=== PATIENT | female | born 1970 | race African-American/Black ===

== ENCOUNTER 2017-06-13 08:27 | Observation (INO) | payer SELFPAY ==
[2017-06-13] VITALS (11 sets, daily range): BP systolic 168–207; BP diastolic 82–118; PULSE 78–108; RESP 16–20; TEMP 97.9–98.6; O2SAT 94–99
[~2017-06-13 08:27] MED LIST: METO25 PO; NORV5TAB PO
[2017-06-13] MEDS ORDERED: SODIUM CHLORIDE 0.9% FLUSH 10 ML FLUSH IVF PRN (08:45)
[2017-06-13] MEDS ORDERED: ASPIRIN 81 MG CHEW TAB PO ONE (09:00)
--- NOTE | 2017-06-13 09:09 | PD ---
HPI Chief Complaint: Cardiac Complaint Time Seen by Provider: 08:37 Travel History International Travel<30 days: No Contact w/Intl Traveler<30days: No Traveled to known affect area: No History of Present Illness HPI Patient is a 46-year-old female with a history of high blood pressure is not taking her medicines and some months presents emergency Department with acute on chronic chest pain. Patient states she's been having chest pains in the middle of her chest for the past 2 weeks which got severe this morning. States his company with some mild nausea and one episode of nonbilious nonbloody vomiting as well as shortness of breath. She states she had a cardiac catheterization approximately 3 years ago an outside facility. She has not followed up with primary care physician sometime. Unknown if she has diabetes or high cholesterol. Describes her pain as sharp in the middle of her chest without radiation. Cannot describe any alleviating or exacerbating factors. She states that "everyone" has heart problems and my family. PFSH Past Medical History Diminished Hearing: No Hypertension: Yes Tetanus Vaccination: Unknown Influenza Vaccination: No ?: Not LMP: 05/22/17 Tubal Ligation: Yes (1991) Past Surgical History Section: Yes (1990) Social History Alcohol Use: Yes (4 BEERS PER DAY X 16 YEARS) Tobacco Use: Yes (/2 ppd) Substance Use: No Allergies-Medications (Allergen,Severity, Reaction): Coded Allergies: Lisinopril (Verified Adverse Reaction, Severe, Swelling, 06/13/17) Reported Meds & Prescriptions Reported Meds & Active Scripts Active No Active Prescriptions or Reported Medications Review of Systems Except as stated in HPI: all other systems reviewed are Neg Physical Exam Narrative GENERAL: Well-developed well-nourished no apparent distress, morbidly obese. SKIN: Focused skin assessment warm/dry. HEAD: Atraumatic. Normocephalic. EYES: Pupils equal and round. No scleral icterus. No injection or drainage. ENT: No nasal bleeding or discharge. Mucous membranes pink and moist. NECK: Trachea midline. No JVD. CARDIOVASCULAR: Regular rate and rhythm. No murmur appreciated. RESPIRATORY: No accessory muscle use. Clear to auscultation. Breath sounds equal bilaterally. GASTROINTESTINAL: Abdomen soft, non-tender, nondistended. Hepatic and splenic margins not palpable. MUSCULOSKELETAL: No obvious deformities. No clubbing. No cyanosis. No edema. NEUROLOGICAL: Awake and alert. No obvious cranial nerve deficits. Motor grossly within normal limits. Normal speech. PSYCHIATRIC: Appropriate mood and affect; insight and judgment normal. Data Data Last Documented VS Vital Signs Date Time Temp Pulse Resp B/P Pulse Ox O2 Delivery O2 Flow Rate FiO2 06/13/17 12:00 87 16 179/89 98 Nasal Cannula 2 06/13/17 08:30 98.6 Orders Electrocardiogram (06/13/17 08:38) Ckmb (Isoenzyme) Profile (06/13/17 08:38) Complete Blood Count With Diff (06/13/17 08:38) Comprehensive Metabolic Panel (06/13/17 08:38) Magnesium (Mg) (06/13/17 08:38) Prothrombin Time / Inr (Pt) (06/13/17 08:38) Act Partial Throm Time (Ptt) (06/13/17 08:38) Troponin I (06/13/17 08:38) Lipase (06/13/17 08:38) Chest, Single Ap (06/13/17 08:38) Ecg Monitoring (06/13/17 08:38) Bilateral Bp Monitoring (06/13/17 08:38) Iv Access Insert/Monitor (06/13/17 08:38) Oximetry (06/13/17 08:38) Oxygen Administration (06/13/17 08:38) Sodium Chloride 0.9% Flush (Ns Flush) (06/13/17 08:45) Aspirin Chew (Aspirin Chew) (06/13/17 09:00) Nitroglycerin Sl (Nitrostat Sl) (06/13/17 09:00) CKMB (06/13/17 08:53) CKMB% (06/13/17 08:53) Potassium Chloride (Kcl) (06/13/17 10:00) Nitroglycerin 2% Oint (Nitroglycerin 2% (06/13/17 10:45) Admit Order (Ed Use Only) (06/13/17 ) Labs Laboratory Tests Test 06/13/17 08:53 White Blood Count 6.2 TH/MM3 Red Blood Count 4.76 MIL/MM3 Hemoglobin 11.3 GM/DL Hematocrit 35.9 % Mean Corpuscular Volume 75.4 FL Mean Corpuscular Hemoglobin 23.7 PG Mean Corpuscular Hemoglobin 31.5 % Concent Red Cell Distribution Width 18.8 % Platelet Count 303 TH/MM3 Mean Platelet Volume 8.2 FL Neutrophils (%) (Auto) 68.8 % Lymphocytes (%) (Auto) 23.4 % Monocytes (%) (Auto) 6.1 % Eosinophils (%) (Auto) 1.4 % Basophils (%) (Auto) 0.3 % Neutrophils # (Auto) 4.3 TH/MM3 Lymphocytes # (Auto) 1.4 TH/MM3 Monocytes # (Auto) 0.4 TH/MM3 Eosinophils # (Auto) 0.1 TH/MM3 Basophils # (Auto) 0.0 TH/MM3 CBC Comment DIFF FINAL Differential Comment Prothrombin Time 10.4 SEC Prothromb Time International 0.9 RATIO Ratio Activated Partial 25.9 SEC Thromboplast Time Sodium Level 132 MEQ/L Potassium Level 2.7 MEQ/L Chloride Level 95 MEQ/L Carbon Dioxide Level 28.8 MEQ/L Anion Gap 8 MEQ/L Blood Urea Nitrogen 10 MG/DL Creatinine 0.87 MG/DL Estimat Glomerular Filtration 85 ML/MIN Rate Random Glucose 117 MG/DL Calcium Level 8.9 MG/DL Magnesium Level 2.1 MG/DL Total Bilirubin 0.3 MG/DL Aspartate Amino Transf 15 U/L (AST/SGOT) Alanine Aminotransferase 19 U/L (ALT/SGPT) Alkaline Phosphatase 103 U/L Total Creatine Kinase 137 U/L Creatine Kinase MB 1.7 NG/ML Troponin I LESS THAN 0.02 NG/ML Total Protein 8.7 GM/DL Albumin 3.8 GM/DL Lipase 83 U/L MDM Medical Decision Making Medical Screen Exam Complete: Yes Emergency Medical Condition: Yes Interpretation(s) EKG shows normal sinus rhythm normal axis normal R-wave progression. Intervals within normal limits. No concerning ST segment changes. This normal EKG. Differential Diagnosis ACS, AMI, pneumonia, PE is excluded by wells and PERC criteria, hypertensive. Narrative Course Patient roomed in emergency department, his history of high blood pressure and family history of heart disease as well as obesity. Blood pressure remains elevated despite nitroglycerin and mildly hypokalemic, for this reason she is not a candidate for chest pain center will be placed out to have this. Patient was discussed with hospitalist for admission is agreeable. Initial workup including EKG and troponin is negative. Chest x-ray negative. Diagnosis Primary Impression: Chest pain Additional Impression: Hypokalemia Admitting Information Admitting Physician Requests: Observation Scripts No Active Prescriptions or Reported Meds Condition: Stable Roberth Calix MD Jun 13, 2017 09:09
[2017-06-13] MEDS: NITROGLYCERIN 0.4 MG SL 25 TABS/BTL SL SCH ×3 (09:13→09:38)
--- NOTE | 2017-06-13 09:13 | RADRPT ---
EXAM DATE/TIME: 06/13/2017 08:56 [facility] COMPARISON: No previous studies available for comparison. INDICATIONS : Chest pain MEDICAL HISTORY : None. SURGICAL HISTORY : catherization a couple years ago. ENCOUNTER: Initial ACUITY: 1 week PAIN SCORE: 5/10 LOCATION: Bilateral chest FINDINGS: A single view of the chest demonstrates the lungs to be symmetrically aerated without evidence of mas s, infiltrate or effusion. Mild enlargement of the cardiac silhouette. Osseous structures are intact . CONCLUSION: 1. Mild cardiomegaly. 2. Otherwise, no acute cardiopulmonary disease. Rell Gutierrez MD on June 13, 2017 at 9:10 Board Certified Radiologist. This report was verified electronically.
[2017-06-13 09:24] LABS: AUTOMATED NEUTROPHIL # 4.3 TH/MM3 (1.8-7.7); BASOPHIL % 0.3 % (0.0-2.0); EOSINOPHIL # 0.1 TH/MM3 (0-0.4); EOSINOPHIL % 1.4 % (0.0-4.0); HEMATOCRIT 35.9 % (35.0-46.0); HEMO FLAGS DIFF FINAL; LYMPH % 23.4 % (9.0-44.0); LYMPHOCYTE # 1.4 TH/MM3 (1.0-4.8); MEAN CELL VOLUME 75.4 FL (80.0-100.0); MEAN CORPUSCULAR HEMOGLOBIN 23.7 PG (27.0-34.0); MEAN CORPUSCULAR HGB CONC 31.5 % (32.0-36.0); MONO % 6.1 % (0.0-8.0); NEUT % 68.8 % (16.0-70.0); PLATELET COUNT 303 TH/MM3 (150-450); RED BLOOD COUNT 4.76 MIL/MM3 (4.00-5.30); RED CELL DISTRIBUTION WIDTH 18.8 % (11.6-17.2); WHITE BLOOD COUNT 6.2 TH/MM3 (4.0-11.0)
[2017-06-13 09:36] LABS: APTT (PATIENT) 25.9 SEC (24.3-30.1); INTERNATIONAL NORMALIZED RATIO 0.9 RATIO; PROTHROMBIN TIME - PATIENT 10.4 SEC (9.8-11.6)
[2017-06-13 09:46] LABS: ALT (GPT) 19 U/L (10-53); ANION GAP 8 MEQ/L (5-15); AST (GOT) 15 U/L (15-37); BICARBONATE 28.8 MEQ/L (21.0-32.0); BLOOD UREA NITROGEN 10 MG/DL (7-18); CHLORIDE 95 MEQ/L (98-107); GLOMERULAR FILTRATION RATE 85 ML/MIN (>89); MAGNESIUM 2.1 MG/DL (1.5-2.5); SODIUM (NA) 132 MEQ/L (136-145)
[2017-06-13 09:49] LABS: ALKALINE PHOSPHATASE 103 U/L (45-117); CREATINE KINASE 137 U/L (26-192); POTASSIUM 2.7 MEQ/L (3.5-5.1); TOTAL BILIRUBIN ADULT 0.3 MG/DL (0.2-1.0)
[2017-06-13] MEDS ORDERED: POTASSIUM CHLORIDE 20 MEQ CONTROLLED RELEASE TAB PO ONE (10:00)
[2017-06-13 10:03] LABS: CKMB 1.7 NG/ML (0.5-3.6)
[2017-06-13] MEDS ORDERED: NITROGLYCERIN 2% OINT 1 GM PACKET TOPICAL ONE (10:45)
--- NOTE | 2017-06-13 12:39 | EKG ---
Date Performed: 06/13/2017 Time Performed: 08:43:59 PTAGE: 46 years EKG: Sinus rhythm NORMAL ECG NO PREVIOUS TRACING DOCTOR: Rolando Garrido Interpretating Date/Time 06/13/2017 12:37:07
[2017-06-13] MEDS ORDERED: LACTULOSE SYRUP 20 GM/30 ML CUP PO PRN (12:45)
[2017-06-13] MEDS ORDERED: SODIUM CHLORIDE 0.9% FLUSH 10 ML FLUSH IV FLUSH PRN (12:45)
[2017-06-13] MEDS ORDERED: MAGNESIUM HYDROXIDE SUSP 30 ML CUP PO PRN (12:45)
[2017-06-13] MEDS ORDERED: ACETAMINOPHEN 325 MG TAB PO PRN (12:45)
[2017-06-13] MEDS ORDERED: SENNOSIDES 8.6 MG TAB PO PRN (12:45)
[2017-06-13] MEDS ORDERED: NALOXONE HCL 0.4 MG/ML AMP IV PRN (12:45)
[2017-06-13] MEDS ORDERED: ONDANSETRON HCL 4 MG/2 ML VIAL IVP PRN (12:45)
[2017-06-13] MEDS ORDERED: BISACODYL 10 MG SUPP RECTAL PRN (12:45)
[2017-06-13] MEDS: POTASSIUM CHLORIDE 20 MEQ CONTROLLED RELEASE TAB PO SCH ×2 (13:08→20:43)
--- NOTE | 2017-06-13 13:46 | HHI.HP ---
[facility] No Primary Care Physician Admission Diagnosis Chest pain Diagnoses: Chief Complaint: chest pain Travel History International Travel<30 Days: No Contact w/Intl Traveler <30 Da: No Traveled to Known Affected Are: No History of Present Illness Written by Lynda Duffy, acting as scribe for Dr. Gooden on 06/13/17 at 14:48. This note was transcribed by scribJUDY De Jesus. I, Dr. Blanco Gooden personally performed the history, physical exam, and medical decision making; and confirmed the accuracy of the information in the transcribed note. Authenticated by Dr. Blanco Gooden on 06/13/17 at 23:51. 46-year-old female with history of obesity, tobacco use, alcohol use, and hypertension presents with a 1.5 week history of intermittent chest pains. She locates the chest pain to the center of her chest, described as stabbing pains, associated with left arm numbness, diaphoresis. Today her chest pain was much worse, described as severe, and associated with nausea, vomiting, and shortness of breath. The pain lasts 15-20minutes at a time. She reports mostly chest pains are experienced with exertion, denies any chest pain at rest. She has correlated chest pains with her headaches. She states almost every night she's had a migraine with photophobia, relieved by rest/sleep after 3-4 hours. The patient states over a month ago her legs became significantly swollen however this has improved. She was previously on metoprolol for her hypertension however recently only taking full strength aspirin. She cannot tolerate lisinopril due to allergic reaction. The patient believes she's had a cardiac catheterization 2-3years ago at [facility] that was reportedly clean. She denies any prior nuclear stress test. Currently the patient is chest pain free after receiving nitro/aspirin in the ED. She does not see a primary care physician but states she will plan on getting insurance through her employer. Review of Systems Except as stated in HPI: all other systems reviewed are Neg Past Family Social History Past Medical History Hypertension Past Surgical History Tubal ligation 1991 1990 Reported Medications Denies taking medications on a regular basis. Allergies: Coded Allergies: Lisinopril (Verified Adverse Reaction, Severe, Swelling, 06/13/17) Active Ordered Medications Current Medications Medications (Trade) Dose Ordered Sig/Canelo Route Start Time Stop Time Status Last Admin (NS Flush) 2 ml UNSCH PRN IV FLUSH 06/13/17 12:45 (NS Flush) 2 ml BID IV FLUSH 06/13/17 21:00 (Tylenol) 650 mg Q4H PRN PO 06/13/17 12:45 (Zofran Inj) 4 mg Q6H PRN IVP 06/13/17 12:45 (Narcan Inj) 0.4 mg UNSCH PRN IV 06/13/17 12:45 (Anita-Colace) 1 tab BID PO 06/13/17 21:00 (Milk Of Magnesia Liq) 30 ml Q12H PRN PO 06/13/17 12:45 (Senokot) 17.2 mg Q12H PRN PO 06/13/17 12:45 (Dulcolax Supp) 10 mg DAILY PRN RECTAL 06/13/17 12:45 (Lactulose Liq) 30 ml DAILY PRN PO 06/13/17 12:45 (KCl) 20 meq Q8H PO 06/13/17 13:00 06/16/17 12:59 06/13/17 13:08 Family History Father at a young age, probably in his 40s, with heart disease Mother with hypertension Brother with stroke in his late 40s Cousin in her 40s after triple bypass Social History Tobacco use, smokes 1/2 PPD Alcohol use, 2-4beers almost every day Denies any illicit drug use Physical Exam Vital Signs Vital Signs Date Time Temp Pulse Resp B/P Pulse Ox O2 Delivery O2 Flow Rate FiO2 06/13/17 12:00 87 16 179/89 98 Nasal Cannula 2 06/13/17 10:00 84 16 175/82 98 Room Air 06/13/17 08:42 Room Air 06/13/17 08:42 97 18 172/92 94 Nasal Cannula 2 06/13/17 08:41 94 Nasal Cannula 2 06/13/17 08:41 94 Nasal Cannula 2 06/13/17 08:30 98.6 102 207/118 95 Physical Exam GENERAL: Well-nourished, well-developed obese female patient in [facility]. SKIN: Warm and dry. No rash. HEAD: Normocephalic. Atraumatic. EYES: Pupils equal and round. No scleral icterus. No injection or drainage. ENT: No nasal bleeding or discharge. Mucous membranes pink and moist. NECK: Supple. Trachea midline. CARDIOVASCULAR: Regular rate and rhythm. S1, S2 noted. No murmur appreciated. RESPIRATORY: No accessory muscle use. Clear to auscultation. Breath sounds equal bilaterally. GASTROINTESTINAL: Abdomen soft, non-tender, nondistended. Normoactive bowel sounds x4. MUSCULOSKELETAL: No obvious deformities. Extremities without clubbing, cyanosis , or edema. NEUROLOGICAL: Awake and alert. No obvious cranial nerve deficits. Motor grossly within normal limits. Moves all extremities spontaneously. Normal speech. PSYCHIATRIC: Appropriate mood and affect; insight and judgment normal. Laboratory Laboratory Tests Test 06/13/17 08:53 White Blood Count 6.2 Red Blood Count 4.76 Hemoglobin 11.3 Hematocrit 35.9 Mean Corpuscular Volume 75.4 Mean Corpuscular Hemoglobin 23.7 Mean Corpuscular Hemoglobin 31.5 Concent Red Cell Distribution Width 18.8 Platelet Count 303 Mean Platelet Volume 8.2 Neutrophils (%) (Auto) 68.8 Lymphocytes (%) (Auto) 23.4 Monocytes (%) (Auto) 6.1 Eosinophils (%) (Auto) 1.4 Basophils (%) (Auto) 0.3 Neutrophils # (Auto) 4.3 Lymphocytes # (Auto) 1.4 Monocytes # (Auto) 0.4 Eosinophils # (Auto) 0.1 Basophils # (Auto) 0.0 CBC Comment DIFF FINAL Differential Comment Prothrombin Time 10.4 Prothromb Time International 0.9 Ratio Activated Partial 25.9 Thromboplast Time Sodium Level 132 Potassium Level 2.7 Chloride Level 95 Carbon Dioxide Level 28.8 Anion Gap 8 Blood Urea Nitrogen 10 Creatinine 0.87 Estimat Glomerular Filtration 85 Rate Random Glucose 117 Calcium Level 8.9 Magnesium Level 2.1 Total Bilirubin 0.3 Aspartate Amino Transf 15 (AST/SGOT) Alanine Aminotransferase 19 (ALT/SGPT) Alkaline Phosphatase 103 Total Creatine Kinase 137 Creatine Kinase MB 1.7 Troponin I LESS THAN 0.02 Total Protein 8.7 Albumin 3.8 Lipase 83 Result Diagram: 06/13/17 0853 06/13/17 0853 Imaging Last Impressions Chest X-Ray 06/13/17 0838 Signed Impressions: Service Date/Time: , June 13, 2017 08:56 - CONCLUSION: 1. Mild cardiomegaly. 2. Otherwise, no acute cardiopulmonary disease. Rell Gutierrez MD Assessment and Plan Problem List: (1) Chest pain ICD Code: R07.9 Status: Acute (2) Hypokalemia ICD Code: E87.6 Status: Acute Assessment and Plan 46-year-old female with history of obesity, tobacco use, alcohol use, and hypertension presents with a 1.5 week history of intermittent chest pains. Chest Pain: with +risk factors tobacco use, hypertension, strong family hx. CXR images reviewed, shows mild cardiomegaly, otherwise unremarkable. Initial trop 0.02, EKG without acute ischemic changes. -Continue to rule out ACS with serial cardiac enzymes and EKG -Monitor on telemetry -Continue nitro, aspirin -check lipid panel and HgbA1c -Plan for nuclear stress test in the am Hypokalemia: K 2.7. Possibly contributing to chest pain. Mag 2.1. -given po KCl 40meq x1 in ER, and started on KCl 20meq q8h -monitor BMP, replace electrolytes as needed Hypertensive Urgency secondary to Accelerated Hypertension: BP 207/118 upon arrival. Off antihypertensives at home, no current PCP, previously on metoprolol only. Avoid GREGOR with hx of allergic reaction. -BP slowing improving on nitro paste -Start patient on Norvasc 10mg daily -clonidine prn -Monitor BP, adjust antihypertensives as needed Tobacco Use: chronic, smokes 1/2 PPD -counseled extensively on cessation. -Will provide nicotine patch if needed. Alcohol Use: chronic, drinks 2-4 beers daily -counseled on cessation. -Start thiamine/folate/MV. -No hx of withdrawal. Monitor closely. Obesity: weighs 110kg -counseled on weight reduction. -needs f/up with PCP Microcytic Anemia: mild -check iron studies/ferritin -monitor CBC. DVT Prophylaxis: SCDs Code Status Full Code Discussed Condition With Patient, ER Lynda Baker PA-C Jun 13, 2017 13:46 Mabel Gooden DO Jun 13, 2017 23:52
--- NOTE | 2017-06-13 17:11 | EKG ---
Date Performed: 06/13/2017 Time Performed: 13:58:23 PTAGE: 46 years EKG: Sinus rhythm NORMAL ECG No significant change from prior electrocardiogram. PREVIOUS TRACING : 06/13/2017 08.43 DOCTOR: Dominic Quiroz Interpretating Date/Time 06/13/2017 17:09:45
[2017-06-13] MEDS ORDERED: amLODIPine BESYLATE 5 MG TAB PO ONE (18:00)
[2017-06-13] MEDS: cloNIDine HCL 0.1 MG TAB PO PRN (20:42)
[2017-06-13] MEDS: DOCUSATE SODIUM 50 MG/SENNA 8.6 MG TAB PO SCH (20:42)
[2017-06-13] MEDS: SODIUM CHLORIDE 0.9% FLUSH 10 ML FLUSH IV FLUSH SCH (20:42)
[2017-06-13 22:34] LABS: HEMOGLOBIN A1a 1.1 %; HEMOGLOBIN A1b 1.6 %; HEMOGLOBIN Ao 83.8 %; HEMOGLOBIN F 0.3 %; HEMOGLOBIN LA1C 2.1 %; HEMOGLOBIN P3 3.8 %
[2017-06-14] VITALS (8 sets, daily range): BP systolic 139–182; BP diastolic 80–91; PULSE 81–108; RESP 16–20; TEMP 97.5–99; O2SAT 94–99
[2017-06-14] MEDS: POTASSIUM CHLORIDE 20 MEQ CONTROLLED RELEASE TAB PO SCH ×2 (05:10→13:06)
[2017-06-14 06:15] LABS: ANION GAP 6 MEQ/L (5-15); BICARBONATE 29.8 MEQ/L (21.0-32.0); BLOOD UREA NITROGEN 10 MG/DL (7-18); CHLORIDE 97 MEQ/L (98-107); GLOMERULAR FILTRATION RATE 95 ML/MIN (>89); POTASSIUM 3.1 MEQ/L (3.5-5.1); SODIUM (NA) 133 MEQ/L (136-145)
[2017-06-14 06:17] LABS: TRANSFERRIN IRON PROFILE 380 MG/DL (200-360)
[2017-06-14 06:20] LABS: FERRITIN 10 NG/ML (8-252); HDL CHOLESTEROL 64.1 MG/DL (40.0-60.0); LDL CHOLESTEROL 119 MG/DL (0-99)
--- NOTE | 2017-06-14 07:23 | EKG ---
Date Performed: 06/13/2017 Time Performed: 18:37:26 PTAGE: 46 years EKG: Sinus rhythm NORMAL ECG No significant change from prior electrocardiogram. PREVIOUS TRACING : 06/13/2017 13.58 DOCTOR: Dominic Quiroz Interpretating Date/Time 06/14/2017 07:22:36
[2017-06-14] MEDS ORDERED: POTASSIUM CHLORIDE 20 MEQ CONTROLLED RELEASE TAB PO ONE ×2 (07:45→16:00)
[2017-06-14] MEDS ORDERED: FOLIC ACID 1 MG TAB PO SCH (09:00)
[2017-06-14] MEDS ORDERED: MULTIVITAMINS/MINERALS THERAPEUTIC TAB PO SCH (09:00)
[2017-06-14] MEDS ORDERED: THIAMINE HCL 100 MG TAB PO SCH (09:00)
[2017-06-14] MEDS: SODIUM CHLORIDE 0.9% FLUSH 10 ML FLUSH IV FLUSH SCH (09:44)
[2017-06-14] MEDS: DOCUSATE SODIUM 50 MG/SENNA 8.6 MG TAB PO SCH (09:44)
--- NOTE | 2017-06-14 11:07 | HHI.PR ---
Subjective Remarks Follow-up for chest pain. The patient she does report constant midsternal chest pain overnight. She has some mild shortness of breath as well. She has been having a dry cough lately. She does continue to smoke. She denies any pain with breathing. Going for stress test today. Objective Vitals Vital Signs Date Time Temp Pulse Resp B/P Pulse Ox O2 Delivery O2 Flow Rate FiO2 06/14/17 07:25 98.7 93 20 153/80 95 06/14/17 03:59 84 06/14/17 03:35 98.4 87 20 143/80 99 06/14/17 00:27 97.5 93 20 139/84 94 06/14/17 00:00 108 06/13/17 20:07 97.9 99 20 199/102 96 06/13/17 20:01 108 06/13/17 20:00 96 Nasal Cannula 2.00 06/13/17 16:46 98.1 93 16 200/109 98 06/13/17 16:22 87 18 168/84 98 Nasal Cannula 2 06/13/17 14:00 78 16 168/88 99 Nasal Cannula 2 06/13/17 12:00 87 16 179/89 98 Nasal Cannula 2 Result Diagram: 06/13/17 0853 06/14/17 0538 Imaging Last Impressions Chest X-Ray 06/13/17 0838 Signed Impressions: Service Date/Time: May 08:56 - CONCLUSION: 1. Mild cardiomegaly. 2. Otherwise, no acute cardiopulmonary disease. Rell Gutierrez MD Objective Remarks GENERAL: Well-developed well-nourished morbidly obese. In no acute distress. SKIN: Warm and dry. No lesions noted. HEENT: Normocephalic. Pupils equal and round. Mucous membranes pink and moist. CARDIOVASCULAR: Regular rate and rhythm. No murmur appreciated. Chest wall nontender. RESPIRATORY: No accessory muscle use. Clear to auscultation. Breath sounds equal bilaterally. GASTROINTESTINAL: Abdomen soft, non-tender, nondistended. Bowel sounds x4. MUSCULOSKELETAL: No obvious deformities. No clubbing or cyanosis. No edema. NEUROLOGICAL: Awake and alert. No focal neurological deficits. Moves upper and lower extremities spontaneously. Normal speech. PSYCHIATRIC: Appropriate mood and affect; insight and judgment normal. A/P Problem List: (1) Chest pain ICD Code: R07.9 Status: Acute (2) Hypokalemia ICD Code: E87.6 Status: Acute Assessment and Plan 46-year-old female with history of obesity, tobacco use, alcohol use, and hypertension presents with a 1.5 week history of intermittent chest pains. Chest Pain: Atypical, however with +risk factors tobacco use, hypertension, strong family hx, diabetes. CXR reviewed, shows mild cardiomegaly, otherwise unremarkable. Trop 0.02x3, EKG without acute ischemic changes. Symptoms could be related to profound hypokalemia or hypertensive urgency present on admission. -ACS ruled out per protocol -Monitor on telemetry -Continue nitro, aspirin -LDL 119, consider statin if stress test is positive -Nuclear stress test today Hypokalemia: K 2.7. Possibly contributing to chest pain. Mag 2.1. -Started on KCl 20meq q8h, continue 3 days -Potassium improving to 3.1 today, given additional oral replacement Hypertension: BP 207/118 upon arrival. Off antihypertensives at home, no current PCP, previously on metoprolol only. Avoid GREGOR with hx of allergic reaction. Improving. -Started patient on Norvasc 10mg daily -clonidine prn -Monitor BP, adjust antihypertensives as needed New-onset diabetes: Hemoglobin A1c found to be 6.6. -Start metformin -Diabetes education and dietitian consult Tobacco Use: chronic, smokes 1/2 PPD -counseled extensively on cessation. -Will provide nicotine patch if needed. Alcohol Use: chronic, drinks 2-4 beers daily -Cessation counseling -Continue thiamine/folate/MV. -No hx of withdrawal. Monitor closely. Obesity: weighs 110kg -counseling on weight reduction. -needs f/up with PCP Microcytic Anemia: mild. Iron studies show iron deficiency. -Start iron supplementation DVT Prophylaxis: SCDs Discharge Planning Follow-up results of stress test. Nuclear stress test was nonischemic. The patient received education from primary special educator and dietitian. Potassium improved to 3.4. Discharge home today with prescriptions for amlodipine, ferrous sulfate, metformin, potassium 3 days. All questions answered. Nish Dejesus Jun 14, 2017 11:07
[2017-06-14 11:10] LABS: BETA HCG QUANT LESS THAN 1 MIU/ML (0-5)
[2017-06-14] MEDS ORDERED: REGADENOSON INJ 0.4 MG/5 ML SYR ONE (12:00)
[2017-06-14] MEDS: cloNIDine HCL 0.1 MG TAB PO PRN (13:06)
--- NOTE | 2017-06-14 13:56 | RADRPT ---
EXAM DATE/TIME: 06/14/2017 11:19 [facility] COMPARISON: CHEST SINGLE AP, June 13, 2017, 8:56. INDICATIONS : Midsternal chest pain radiating to left arm. Angina. DOSE: 30.1 mCi Tc99m Myoview at stress. 10.2 mCi Tc99m Myoview at rest. 0.4 mg Lexiscan STRESS SYMPTOMS: Stomach pains. EJECTION FRACTION: 60% MEDICAL HISTORY : Hypertension. Smoker. SURGICAL HISTORY : section. Tubal ligation. ENCOUNTER: Initial ACUITY: 1 day PAIN SCALE: 3/10 LOCATION: Midsternal chest TECHNIQUE: The patient underwent pharmacologic stress with infusion of prescribed dose. Continuous ECG tracing was monitored during stress. Gated SPECT imaging was performed after stress and conventional SPECT i maging was performed at rest. The examination was performed on a SPECT/CT scanner, both attenuation and non-corrected datasets were reviewed. FINDINGS: DISTRIBUTION: The maximum perfused segment at stress is in the septal wall. PERFUSION STUDY: The pattern of perfusion at stress demonstrates significant reduction in perfusion on the nonattenuat ion corrected images involving the anteroapical wall, anterior wall, posterior basal inferior wall an d posterolateral wall and all of these areas appear normally perfused on the attenuation corrected im ages. Findings are mostly due to significant breast attenuation and diaphragmatic attenuation artifac ts. GATED STUDY: There is intact wall motion and thickening without hypokinetic or dyskinetic segments. CONCLUSION: Limited exam due to significant attenuation artifacts without any significant ischemia. RISK CATEGORY: Low (<1% Annual Mortality Rate) Sayra Danielson MD on June 14, 2017 at 13:52 Board Certified Radiologist. This report was verified electronically.
[2017-06-14] MEDS ORDERED: FERR325T20 PO (16:02)
[2017-06-14] MEDS ORDERED: METF500 PO (16:02)
[2017-06-14] MEDS ORDERED: POTA20TA5 PO (16:02)
[2017-06-14] MEDS ORDERED: AMLO10 PO (16:02)
[2017-06-14] MEDS ORDERED: metFORMIN HCL 500 MG TAB PO SCH (18:00)
[2017-06-15 04:20] VITALS: BP 119/71; PULSE 66; RESP 20; TEMP 98.4; O2SAT 94
[2017-06-15] MEDS ORDERED: FERROUS SULFATE 325 MG (65 MG ELEMENTAL IRON) TAB PO SCH (09:00)
== END 2017-06-14 21:12 | disposition home or self-care (01) ==
LOC: NEPC 08:27 → NEDA 12:38 → NEPGCP 16:39
PROVIDERS: ADMIT Hospitalist; ATTEND Hospitalist
DX: R07.89 Other chest pain (principal); E87.6 Hypokalemia; I16.0 Hypertensive urgency; R20.0 Anesthesia of skin; R05 Cough; R61 Generalized hyperhidrosis; R11.2 Nausea with vomiting, unspecified; R06.02 Shortness of breath; D50.9 Iron deficiency anemia, unspecified; I11.9 Hypertensive heart disease without heart failure; I51.7 Cardiomegaly; I20.9 Angina pectoris, unspecified; E11.9 Type 2 diabetes mellitus without complications; G43.909 Migraine, unspecified, not intractable, without status migrainosus; E66.01 Morbid (severe) obesity due to excess calories; F17.200 Nicotine dependence, unspecified, uncomplicated
CPT/HCPCS: 71010; 78452; 80048; 80053; 80061; 82550; 82552; 82728; 82948; 83036; 83540; 83550; 83690; 83735; 84132; 84484; 84702; 85025; 85610; 85730; 93005; 93017; 99285; A9502; G0378; J2785

== ENCOUNTER 2017-12-03 10:44 | Emergency (ER) | payer SELFPAY ==
[~2017-12-03] VITALS: Ht 157.5 cm; Wt 90.0 kg
[~2017-12-03 10:44] MED LIST changes: +AMLO10 PO; +FERR325T20 PO; +METF500 PO; -METO25 PO; -NORV5TAB PO; +POTA20TA5 PO
[2017-12-03 10:45] VITALS: BP 176/112; PULSE 98; RESP 16; TEMP 98.7; O2SAT 100
[2017-12-03] MEDS ORDERED: ACETAMINOPHEN 500 MG CPLT PO ONE (11:30)
[2017-12-03] MEDS ORDERED: AMLO10 PO (11:31)
[2017-12-03] MEDS ORDERED: METF500 PO (11:31)
--- NOTE | 2017-12-03 11:31 | PD ---
HPI Chief Complaint: Headache Time Seen by Provider: 11:13 Travel History International Travel<30 days: No Contact w/Intl Traveler<30days: No Traveled to known affect area: No History of Present Illness HPI So 47-year-old woman who presents to the emergency department complaining of headaches, migraines, feeling poorly, cough cold symptoms. The headaches been ongoing for the past 2 weeks and she ran out of her blood pressure medicine, amlodipine 10 mg daily. She's also been out of her diabetes medicines the past week or so. Over the past 2 weeks she's had cough cold symptoms associated with the headache. She otherwise has been feeling generally well. States she' s had similar headaches in the past, usually associated with blood pressure problems. History Past Medical History Narrative Medical Hypertension Diabetes Chronic knee pain LMP: 11/2017 Social History Alcohol Use: Yes (4 BEERS PER DAY X 16 YEARS) Tobacco Use: Yes (/2 ppd) Allergies-Medications (Allergen,Severity, Reaction): Coded Allergies: lisinopril (Unverified Adverse Reaction, Severe, Swelling, 12/03/17) Reported Meds & Prescriptions Reported Meds & Active Scripts Active Norvasc (Amlodipine Besylate) 10 Mg Tab 10 Mg PO DAILY Potassium Chloride Microencaps 20 Meq Tab 20 Meq PO DAILY Glucophage (Metformin HCl) 500 Mg Tab 500 Mg PO BIDPC Ferosul (Ferrous Sulfate) 325 Mg Tablet 325 Mg PO DAILY May cause constipation, can take with a stool softener. Review of Systems Except as stated in HPI: all other systems reviewed are Neg Physical Exam Narrative GENERAL: Well-appearing 47 year-old woman, no acute distress. SKIN: Focused skin assessment warm/dry. HEAD: Atraumatic. Normocephalic. EYES: Pupils equal and round. No scleral icterus. No injection or drainage. CARDIOVASCULAR: Regular rate and rhythm. No murmur appreciated. RESPIRATORY: No accessory muscle use. Clear to auscultation. Breath sounds equal bilaterally. GASTROINTESTINAL: Abdomen soft, non-tender, nondistended. Hepatic and splenic margins not palpable. MUSCULOSKELETAL: No obvious deformities. No clubbing. No cyanosis. No edema. NEUROLOGICAL: Awake and alert. No obvious cranial nerve deficits. Motor grossly within normal limits. Normal speech. PSYCHIATRIC: Appropriate mood and affect; insight and judgment normal. Data Data Last Documented VS Vital Signs Date Time Temp Pulse Resp B/P (MAP) Pulse Ox O2 Delivery O2 Flow Rate FiO2 12/03/17 10:45 98.7 98 16 176/112 (133) 100 Orders Orders Amlodipine (Norvasc) (12/03/17 11:30) Acetaminophen (Tylenol) (12/03/17 11:30) Ed Discharge Order (12/03/17 11:28) [facility] Medical Decision Making Medical Screen Exam Complete: Yes Emergency Medical Condition: Yes Differential Diagnosis Headache, high blood pressure, URI, infection, meningitis, ICH, other Narrative Course Medical decision making 47-year-old woman with headaches in the setting of elevated blood pressure in the setting of being out of medication. She's also sick with URI symptoms. Looks well. TMs normal. Throat looks okay. No severe symptoms. No red flag symptoms with her headache. Recommended supportive treatment. Diagnosis Primary Impression: Headache Additional Instructions: Follow-up with your primary doctor in the next 2-4 days. Take medications as prescribed. Use acetaminophen as needed for headache. Return to the emergency department for any new or worsening symptoms. Med/Other Pt SpecificInfo: Prescription(s) given, No Change to Meds Scripts Amlodipine (Norvasc) 10 Mg Tab 10 MG PO DAILY for Blood Pressure Management, #30 TAB Prov: Joseph Farrell MD 12/03/17 Metformin (Glucophage) 500 Mg Tab 500 MG PO BIDPC for Blood Sugar Management, #60 TAB Prov: Joseph Farrell MD 12/03/17 Disposition: 01 DISCHARGE HOME Condition: Stable Joseph Farrell MD Dec 03, 2017 11:31
== END 2017-12-03 11:44 | disposition home or self-care (01) ==
LOC: NEPD 10:44
DX: R51 Headache (principal); E11.9 Type 2 diabetes mellitus without complications; I10 Essential (primary) hypertension; F17.200 Nicotine dependence, unspecified, uncomplicated; Z79.84 Long term (current) use of oral hypoglycemic drugs
CPT/HCPCS: 99283

== ENCOUNTER 2018-08-24 12:05 | Inpatient (IN) ==
[2018-08-24] MEDS ORDERED: Aspirin 325 MG Tablet PO ONE (12:46)
--- NOTE | 2018-08-24 13:02 | XR ---
EXAM DATE: 08/24/2018 12:34 PM EDT AGE/SEX: 47 years / Female INDICATIONS: Short of Breath CLINICAL DATA: This is the patient's initial encounter. Patient reports that signs and symptoms have been present for 1 day and indicates a pain score of 0/10. MEDICAL/SURGICAL HISTORY: Hypertension. Diabetes mellitus type II. None. COMPARISON: . FINDINGS: The heart size is enlarged. The lungs are clear. No effusion is seen. CONCLUSION: Cardiomegaly. Electronically signed by: Faisal Drummond MD 08/24/2018 1:00 PM EDT
[2018-08-24 13:12] LABS: Baso % (Auto) 0.3 % (0.0-2.0); Eos % (Auto) 0.8 % (0.0-4.0); Hematocrit 35.6 % (35.0-46.0); Hemoglobin 11.2 gm/dL (11.6-15.3); Lymph % (Auto) 16.8 % (9.0-44.0); Mean Corpuscular HGB Conc 31.5 % (32.0-36.0); Mean Corpuscular Hemoglobin 24.3 pg (27.0-34.0); Mean Corpuscular Volume 77.2 fL (80.0-100.0); Mean Platelet Volume 8.5 fL (7.0-11.0); Mono # (Auto) 0.3 th/mm3 (0.0-0.9); Mono % (Auto) 5.2 % (0.0-8.0); Neut # (Auto) 4.7 th/mm3 (1.8-7.7); Neut % (Auto) 76.9 % (16.0-70.0); Platelet Count 243 th/mm3 (150-450); Red Blood Count 4.62 mil/mm3 (4.00-5.30); Red Cell Distribution Width 18.2 % (11.6-17.2); White Blood Count 6.1 th/mm3 (4.0-11.0)
[2018-08-24 13:22] LABS: Activated Partial Thrombo Time 24.9 sec (24.3-30.1); INR 1.1 Ratio; Prothrombin Time 11.4 sec (9.8-11.6)
[2018-08-24 13:35] LABS: Alanine Aminotransferase 45 U/L (10-53); Albumin 3.1 g/dL (3.4-5.0); Anion Gap 7 meq/L (5-15); Aspartate Aminotransferase 28 U/L (15-37); Blood Urea Nitrogen 12 mg/dL (7-18); Calcium 7.8 mg/dL (8.5-10.1); Carbon Dioxide 34.5 meq/L (21.0-32.0); Chloride 100 meq/L (98-107); Glomerular Filtration Rate 58 mL/min (>89); Glucose,Random 117 mg/dL (74-106); Potassium 3.2 meq/L (3.5-5.1); Sodium 141 meq/L (136-145)
[2018-08-24 13:39] LABS: Alkaline Phosphatase 60 U/L (45-117); Total Protein 7.6 g/dL (6.4-8.2); Troponin I 0.02 ng/mL (0.02-0.05)
[2018-08-24 13:45] LABS: Magnesium 1.7 mg/dL (1.5-2.5)
--- NOTE | 2018-08-24 13:49 | ED ---
HPI General Chief complaint: Respiratory Symptoms Stated complaint: sob/blood pressure Time Seen by Provider: 08/24/18 12:27 Source: patient Mode of arrival: ambulatory Limitations: no limitations History of Present Illness HPI narrative: Patient is a 47-year-old female that presents for the evaluation of shortness of breath, elevated blood pressure, elevated blood sugar, and leg pain. The patient states that she started to feel more short of breath 1 month ago. She states that her hypertension and blood sugar have not been well controlled for 1 week since she ran out of her blood pressure and diabetes medication. The patient states that she was taking Metformin and Amlodipine. The patient states that 3 weeks ago she started to experience bilateral leg pain that she states comes and goes. She reports that when she has a painful flare her pain level is a 7/10 on a pain scale. She states that currently her left upper thigh is more painful than the right leg. Upon review of symptoms the patient states that she does have some chest discomfort that is alleviated when she sits down and rests. She states that she has a cough that started 1 week ago that is productive. She denies any numbness or tingling of the upper or lower extremities. She denies nausea, vomiting, headache, or dizziness. She does report an increase of discharge from both eyes that she believes started one week ago and causes her vision to become blurry periodically. Related Data Home Medications Medication Instructions Recorded Confirmed Unable to Obtain Home Meds 08/24/18 08/24/18 Allergies Allergy/AdvReac Type Severity Reaction Status Date / Time lisinopril AdvReac Severe Swelling Unverified 12/03/17 10:51 Review of Systems ROS: all other systems reviewed are negative [facility] Social History Social History Substance History: No History of Abuse Second Hand Smoke Exposure: Yes Smoking Status: Current every day smoker Tobacco Type: Cigarettes How Often Do You Have a Drink Containing Alcohol: 4 or more times a week Recent Travel in [facility] within the Last 8 Weeks: No Recent Out of Country Travel within the Last 8 Weeks: No Immunization History Tetanus Immunization: Unsure Exam Narrative Exam Narrative: GENERAL: Well appearing. Very obese SKIN: Focused skin assessment warm/dry. HEAD: Atraumatic. Normocephalic. EYES: Pupils equal and round. No scleral icterus. No injection or drainage. ENT: No nasal bleeding or discharge. Mucous membranes pink and moist. He uvula deviation. Tongue is midline NECK: Trachea midline. No JVD. CARDIOVASCULAR: Regular rate and rhythm. No murmur appreciated. RESPIRATORY: No accessory muscle use. Clear to auscultation. Breath sounds equal bilaterally. GASTROINTESTINAL: Abdomen soft, non-tender, nondistended. Hepatic and splenic margins not palpable. MUSCULOSKELETAL: No obvious deformities. No clubbing. No cyanosis. No edema. Full range of motion of the upper and lower extremities bilaterally. 2+ pulses bilaterally. Patient does have swelling on the lower extremities and reproducible pain with what appears to be hardening of the skin on the medial aspect of both lower legs. One on the left than the right. Slightly tender in this area. No obvious calf tenderness. NEUROLOGICAL: Awake and alert. No obvious cranial nerve deficits. Motor grossly within normal limits. Normal speech. PSYCHIATRIC: Appropriate mood and affect; insight and judgment normal. Course Initial Documented Vital Signs Temperature 98.6 F 08/24/18 12:23 Pulse Rate 106 H 08/24/18 12:23 Respiratory Rate 24 08/24/18 12:23 Blood Pressure 214/101 H 08/24/18 12:23 Pulse Oximetry 95 08/24/18 12:23 Last Documented Vital Signs Temperature 98.6 F 08/24/18 12:23 Pulse Rate 101 H 08/24/18 16:10 Respiratory Rate 18 08/24/18 16:10 Blood Pressure 174/90 H 08/24/18 16:10 Pulse Oximetry 98 08/24/18 16:10 Medical Decision Making MDM Narrative Medical decision making narrative: 47-year-old female that presents to the ED for evaluation of shortness of breath with exertion and chest pain. Patient was properly examined and was found to have signs and symptoms consistent appears to be possible ACS versus CHF. Versus PE. Labs and imaging order. Labs and imaging essentially unremarkable for PE. Patient does have consolidations on CT. Unclear etiology at this time. BNP is slightly elevated but not completely significant. From the patient's symptoms it does appear that she likely has CHF exacerbation. No history of CHF in the past however. She is for the most part noncompliant and has minimal resources for medical care. She does have a significant family history of heart disease. Because of the patient's symptoms I cannot completely rule out ACS. I do suspect that this is more related to CHF exacerbation. Patient was given hydralazine with improvement of the blood pressure. I recommend admission for further evaluation and treatment and likely echocardiogram to evaluate for the heart as well as serial enzymes and possible stress test. Patient agrees with this admission. Patient was given Lasix here. Patient was admitted to Dr. Murillo who agrees to admission. Medical Screen Exam Complete: Yes Emergency Medical Condition: Yes Differential Diagnosis Differential Diagnosis: CHF exacerbation versus chest pain versus typical chest pain versus ACS Medical Records Medical records reviewed: Yes I reviewed the patient's medical records. Lab Data Lab results reviewed: Yes I reviewed the patient's lab results. Lab results narrative: BNP in the 300s. Troponin of 0.02 Result diagrams: 08/24/18 12:45 08/24/18 12:45 Lab Results 08/24/18 08/24/18 08/24/18 Range/Units 12:45 12:45 12:45 WBC 6.1 (4.0-11.0) th/mm3 RBC 4.62 (4.00-5.30) mil/mm3 Hgb 11.2 L (11.6-15.3) gm/dL Hct 35.6 (35.0-46.0) % MCV 77.2 L (80.0-100.0) fL MCH 24.3 L (27.0-34.0) pg MCHC 31.5 L (32.0-36.0) % RDW 18.2 H (11.6-17.2) % Plt Count 243 (150-450) th/mm3 MPV 8.5 (7.0-11.0) fL Neut % (Auto) 76.9 H (16.0-70.0) % Lymph % (Auto) 16.8 (9.0-44.0) % [place] % (Auto) 5.2 (0.0-8.0) % Eos % (Auto) 0.8 (0.0-4.0) % Baso % (Auto) 0.3 (0.0-2.0) % Neut # (Auto) 4.7 (1.8-7.7) th/mm3 Lymph # (Auto) 1.0 (1.0-4.8) th/mm3 [place] # (Auto) 0.3 (0.0-0.9) th/mm3 Eos # (Auto) 0.0 (0.0-0.4) th/mm3 Baso # (Auto) 0.0 (0.0-0.2) th/mm3 WBC Differential . Differential Comment Auto diff final PT 11.4 (9.8-11.6) sec INR 1.1 Ratio APTT 24.9 (24.3-30.1) sec Sodium 141 (136-145) meq/L Potassium 3.2 L (3.5-5.1) meq/L Chloride 100 (98-107) meq/L Carbon Dioxide 34.5 H (21.0-32.0) meq/L Anion Gap 7 (5-15) meq/L BUN 12 (7-18) mg/dL Creatinine 1.20 H (0.50-1.00) mg/dL Estimated GFR 58 L (>89) mL/min Random Glucose 117 H (74-106) mg/dL Calcium 7.8 L (8.5-10.1) mg/dL Magnesium (1.5-2.5) mg/dL Total Bilirubin 0.4 (0.2-1.0) mg/dL AST 28 (15-37) U/L ALT 45 (10-53) U/L Alkaline Phosphatase 60 (45-117) U/L Total Creatine Kinase (26-192) U/L Troponin I 0.02 (0.02-0.05) ng/mL B-Natriuretic Peptide (0-100) pg/mL Total Protein 7.6 (6.4-8.2) g/dL Albumin 3.1 L (3.4-5.0) g/dL 08/24/18 08/24/18 Range/Units 12:45 12:45 WBC (4.0-11.0) th/mm3 RBC (4.00-5.30) mil/mm3 Hgb (11.6-15.3) gm/dL Hct (35.0-46.0) % MCV (80.0-100.0) fL MCH (27.0-34.0) pg MCHC (32.0-36.0) % RDW (11.6-17.2) % Plt Count (150-450) th/mm3 MPV (7.0-11.0) fL Neut % (Auto) (16.0-70.0) % Lymph % (Auto) (9.0-44.0) % [place] % (Auto) (0.0-8.0) % Eos % (Auto) (0.0-4.0) % Baso % (Auto) (0.0-2.0) % Neut # (Auto) (1.8-7.7) th/mm3 Lymph # (Auto) (1.0-4.8) th/mm3 [place] # (Auto) (0.0-0.9) th/mm3 Eos # (Auto) (0.0-0.4) th/mm3 Baso # (Auto) (0.0-0.2) th/mm3 WBC Differential Differential Comment PT (9.8-11.6) sec INR Ratio APTT (24.3-30.1) sec Sodium (136-145) meq/L Potassium (3.5-5.1) meq/L Chloride (98-107) meq/L Carbon Dioxide (21.0-32.0) meq/L Anion Gap (5-15) meq/L BUN (7-18) mg/dL Creatinine (0.50-1.00) mg/dL Estimated GFR (>89) mL/min Random Glucose (74-106) mg/dL Calcium (8.5-10.1) mg/dL Magnesium 1.7 (1.5-2.5) mg/dL Total Bilirubin (0.2-1.0) mg/dL AST (15-37) U/L ALT (10-53) U/L Alkaline Phosphatase (45-117) U/L Total Creatine Kinase 93 (26-192) U/L Troponin I (0.02-0.05) ng/mL B-Natriuretic Peptide 369 H (0-100) pg/mL Total Protein (6.4-8.2) g/dL Albumin (3.4-5.0) g/dL Imaging Data Attestation: I personally reviewed and interpreted this imaging study as follows : Radiologist's impression: Chest X-Ray 08/24/18 12:34 CONCLUSION: Cardiomegaly. Venous Doppler Study 08/24/18 12:44 CONCLUSION: 1. No evidence of DVT. Chest CTA 08/24/18 12:45 CONCLUSION: 1. No evidence of pulmonary embolism. 2. A few mild scattered interstitial infiltrates are noted bilaterally. 3. Compensated cardiomegaly. ECG Data Attestation: I personally reviewed and interpreted this ECG as follows: Interpretation: EKG shows sinus rhythm with no sign of acute ischemia and arrhythmia read by me and attending. Discharge Plan Discharge Disposition Patient Disposition: 30 Still Patient Discharge Details Diagnosis: Chest pain, Acute exacerbation of CHF (congestive heart failure) Physicians Team ED Provider: Fam Joyner ED Midlevel Provider: Eris Rice Primary Care Provider: Primary Care Mackenzie Malone Attending Provider: Tommie Longoria Discharge Interventions Interventions: Vital Signs Last Done: 08/24/18 16:10 Status ED Status: Admitted Observation Patient
[2018-08-24] MEDS ORDERED: hydrALAZINE HCl Inj 20 MG/ML Vial IV.PUSH ONE (13:51)
--- NOTE | 2018-08-24 14:36 | US ---
EXAM DATE: 08/24/2018 12:44 PM EDT AGE/SEX: 47 years / Female INDICATIONS: Bilateral leg edema. CLINICAL DATA: This is the patient's initial encounter. Patient reports that signs and symptoms have been present for 1 day and indicates a pain score of 0/10. MEDICAL/SURGICAL HISTORY: None. None. COMPARISON: No prior exams available for comparison. TECHNIQUE: Venous ultrasound of both lower extremities was performed from the inguinal ligament to t he proximal calf. Real-time, color Doppler and spectral tracing, compression and augmentation techni ques were used. FINDINGS: Right Leg: Normal compression of the deep venous system from the inguinal region to the proximal sunitha f. No echogenic clot is seen. Left Leg: Normal compression of the deep venous system from the inguinal region to the proximal calf . No echogenic clot is seen. . Other: None. CONCLUSION: 1. No evidence of DVT. Electronically signed by: Jesus Price MD 08/24/2018 2:35 PM EDT
--- NOTE | 2018-08-24 14:58 | CT ---
EXAM DATE: 08/24/2018 2:41 PM EDT AGE/SEX: 47 years / Female INDICATIONS: Short of breath with intermittent chest pain CLINICAL DATA: This is the patient's initial encounter. Patient reports that signs and symptoms have been present for 1 day and indicates a pain score of 7/10. MEDICAL/SURGICAL HISTORY: None. None. RADIATION DOSE: 23.30 CTDI (mGy) COMPARISON: No prior exams available for comparison. TECHNIQUE: Volumetric scanning was performed using a multi-row detector CT scanner during bolus infu nery of 73ML ml Omnipaque 350 (iohexol) nonionic water-soluble contrast as a single exam dose. The d helder was post processed with a variety of visualization algorithms including full volume maximum inten sity projection and sliding thin slab reformation. Using automated exposure control and adjustment of the mA and/or kV according to patient size, radiation dose was kept as low as reasonably achievable to obtain optimal diagnostic quality images. DICOM format image data is available electronically for review and comparison. FINDINGS: Pulmonary Arteries: No filling defects are seen in the pulmonary arteries out to the subsegmental ve ssels. The left and right pulmonary arteries are normal in diameter. Lung: There is some mild scattered interstitial changes bilaterally. Effusion: None. Mediastinum: No evidence of mediastinal or hilar adenopathy. Other: The axilla is unremarkable. The heart size is diffusely enlarged. CONCLUSION: 1. No evidence of pulmonary embolism. 2. A few mild scattered interstitial infiltrates are noted bilaterally. 3. Compensated cardiomegaly. Electronically signed by: Jesus Price MD 08/24/2018 2:56 PM EDT
--- NOTE | 2018-08-24 17:07 | P.HPIM ---
History of Present Illness Primary Care Physician: No Primary Care Physician History of Present Illness: This patient is a 47-year-old obese -G[place]ian female with a diagnosis of hypertension, and diabetes mellitus type 2. The patient presents to our emergency department with complaints of shortness of breath and lower extremity swelling that has been progressively been getting worse over the past 3 weeks. She states that she sleeps in her bathroom because she sits on the toilet and is more comfortable in the bathroom in a sitting position then sleeping laying flat in her bed. She has been doing this for months. Today she was feeling short of breath and her legs were feeling heavy so she came into the emergency department to be evaluated. She denies having any significant chest pain however did complain of bilateral medial knee pain and tightness in her skin of her lower extremities. She denies any nausea or vomiting, no fevers, no diarrhea, no bleeding, no constipation. The patient ran out of her blood pressure medication and metformin a week ago. Past medical history hypertension, diabetes mellitus type 2 Family history significant for diabetes mellitus, hypertension, father of a heart attack she is not sure what age he was when he . Social history the patient smokes approximately 5 cigarettes/day for 15 years., She drinks socially. Denies any history of drug use Surgical history the patient has had C-sections in the past. Medications amlodipine and metformin the patient does not remember the doses. Allergies penicillin which causes hives Lisinopril which causes angioedema Review of Systems All other systems reviewed negative except as stated in HPI PMFSH - History History Provided By: Patient - Tobacco History Second Hand Smoke Exposure: Yes Tobacco Use In Past 30 Days: Yes Smoking Status: Current every day smoker Tobacco Type: Cigarettes - Alcohol History How Often Do You Have a Drink Containing Alcohol: 4 or more times a week - Substance Use History Substance History: No History of Abuse - Travel History Recent Travel in the [place] Within the Last 8 Weeks: No Recent Travel Out of the Country Within the Last 8 Weeks: No - Immunization History Tetanus Immunization: Unsure Medications and Allergies Active Medications: Active Medications Aspirin (Aspirin Chew) 81 mg PO DAILY YOUSUF Enoxaparin Sodium (Lovenox Inj) 40 mg SQ Q24H YOUSUF Furosemide (Lasix Inj) 40 mg IV.PUSH Q8HR YOUSUF Magnesium Sulfate 4 gm/ (Dextrose) 108 mls @ 25 mls/hr IV.SIG ONCE ONE Stop: 08/24/18 22:19 Sodium Chloride (Ns Flush) 2 ml IV.FLUSH BID YOUSUF Sodium Chloride (Ns Flush) 2 ml IV.FLUSH UNSCH PRN PRN Reason: FLUSH AFTER USING IV ACCESS Allergies Allergy/AdvReac Type Severity Reaction Status Date / Time lisinopril AdvReac Severe Swelling Unverified 12/03/17 10:51 Home Medications Medication Instructions Recorded Confirmed Type Unable to Obtain Home Meds 08/24/18 08/24/18 History Exam Vital signs: Vital Signs 08/24/18 12:23 08/24/18 12:52 08/24/18 13:51 Temperature 98.6 F Pulse Rate 106 H 96 H 96 H Respiratory Rate 24 17 17 Blood Pressure 214/101 H 193/92 H 221/107 H Pulse Oximetry 95 96 96 08/24/18 15:09 08/24/18 16:10 Temperature Pulse Rate 98 H 101 H Respiratory Rate 17 18 Blood Pressure 156/87 H 174/90 H Pulse Oximetry 96 98 Intake & Output 08/23/18 08/24/18 08/24/18 18:59 06:59 18:59 Weight 145.15 kg Narrative: General patient in no acute distress HEENT extraocular movements are intact, clear oropharyngeal mucosa, no JVD Cardiovascular S1-S2 audible, 2 out of 6 systolic ejection murmur auscultated. Respiratory bibasilar crackles Abdomen soft, obese, abdominal wall edema present. Extremities 2-3+ pitting edema of bilateral lower extremities up to the thighs. Neuro cranial nerves II through XII intact Results - Labs CBC & Chem 7: 08/24/18 12:45 08/24/18 12:45 Labs: Short CBC 08/24/18 Range/Units 12:45 WBC 6.1 (4.0-11.0) th/mm3 Hgb 11.2 L (11.6-15.3) gm/dL Hct 35.6 (35.0-46.0) % Plt Count 243 (150-450) th/mm3 BMP 08/24/18 12:45 Sodium 141 Potassium 3.2 L Chloride 100 Carbon Dioxide 34.5 H BUN 12 Creatinine 1.20 H Calcium 7.8 L Cardiac Enzymes 08/24/18 08/24/18 Range/Units 12:45 12:45 Total Creatine Kinase 93 (26-192) U/L Troponin I 0.02 (0.02-0.05) ng/mL Liver Function 08/24/18 Range/Units 12:45 Total Bilirubin 0.4 (0.2-1.0) mg/dL AST 28 (15-37) U/L ALT 45 (10-53) U/L Alkaline Phosphatase 60 (45-117) U/L Albumin 3.1 L (3.4-5.0) g/dL - Imaging Impressions Chest X-Ray 08/24/18 12:34 CONCLUSION: Cardiomegaly. Venous Doppler Study 08/24/18 12:44 CONCLUSION: 1. No evidence of DVT. Chest CTA 08/24/18 12:45 CONCLUSION: 1. No evidence of pulmonary embolism. 2. A few mild scattered interstitial infiltrates are noted bilaterally. 3. Compensated cardiomegaly. Caprini VTE Risk Assessment Caprini VTE Risk Assessment: Moderate/High Risk (score >= 2) Caprini Risk Assessment Model: Point Value = 1 Point Value = 2 Point Value = 3 Point Value = 5 Age 41-60 Minor surgery BMI > 25 kg/m2 Swollen legs Varicose veins or History of unexplained or recurrent spontaneous Oral contraceptives or hormone replacement Sepsis (< 1 month) Serious lung disease, including pneumonia (< 1 month) Abnormal pulmonary function Acute myocardial infarction Congestive heart failure (< 1 month) History of inflammatory bowel disease Medical patient at bed rest Age 61-74 Arthroscopic surgery Major open surgery (> 45 min) Laparoscopic surgery (> 45 min) Malignancy Confined to bed (> 72 hours) Immobilizing plaster cast Central venous access Age >= 75 History of VTE Family history of VTE Factor V Leiden Prothrombin [id number] Lupus anticoagulant Anticardiolipin antibodies Elevated serum homocysteine Heparin-induced thrombocytopenia Other congenital or acquired thrombophilia Stroke (< 1 month) Elective arthroplasty Hip, pelvis, or leg fracture Acute spinal cord injury (< 1 month) Prophylaxis Regimen: Total Risk Factor Score Risk Level Prophylaxis Regimen 0-1 Low Early ambulation 2 Moderate Order ONE of the following: *Sequential Compression Device (SCD) *Heparin 5000 units SQ BID 3-4 Higher Order ONE of the following medications: *Heparin 5000 units SQ TID *Enoxaparin/Lovenox 40 mg SQ daily (WT < 150 kg, CrCl > 30 mL/min) *Enoxaparin/Lovenox 30 mg SQ daily (WT < 150 kg, CrCl > 10-29 mL/min) *Enoxaparin/Lovenox 30 mg SQ BID (WT < 150 kg, CrCl > 30 mL/min) AND/OR *Sequential Compression Device (SCD) 5 or more Highest Order ONE of the following medications: *Heparin 5000 units SQ TID (Preferred with Epidurals) *Enoxaparin/Lovenox 40 mg SQ daily (WT < 150 kg, CrCl > 30 mL/min) *Enoxaparin/Lovenox 30 mg SQ daily (WT < 150 kg, CrCl > 10-29 mL/min) *Enoxaparin/Lovenox 30 mg SQ BID (WT < 150 kg, CrCl > 30 mL/min) AND *Sequential Compression Device (SCD) Assessment and Plan - Plan This patient is a 47-year-old obese -G[place] female with a diagnosis of hypertension, and diabetes mellitus type 2. The patient presents to our emergency department with complaints of shortness of breath and lower extremity swelling that has been progressively been getting worse over the past 3 weeks. She states that she sleeps in her bathroom because she sits on the toilet and is more comfortable in the bathroom in a sitting position then sleeping laying flat in her bed. She has been doing this for months. Today she was feeling short of breath and her legs were feeling heavy so she came into the emergency department to be evaluated. She denies having any significant chest pain however did complain of bilateral medial knee pain and tightness in her skin of her lower extremities. She ran out of her medications approximately 1 week ago. 1. Acute new onset CHF exacerbation 2. Uncontrolled hypertension 3. Acute kidney injury likely secondary to #1 4. Diabetes mellitus type 2 The patient presents with symptoms mentioned above. On physical examination she has bibasilar crackles, BNP is elevated. Patient complains of shortness of breath when lying flat. Chest x-ray shows cardiomegaly. She will be started on Lasix 40 mg IV every 8 hours. She should be reevaluated tomorrow and her IV Lasix dosage can be adjusted as needed. A 2D echocardiogram has been ordered and should be followed up. The patient takes amlodipine at home however he ran out of medications while at home. Blood pressure on my examination his systolic around 165. After the initiation of IV diuresis if she continues to be hypertensive she will be started on antihypertensives. Serum creatinine is slightly elevated likely secondary to poor perfusion from CHF exacerbation. Patient was started on a low-dose insulin sliding scale, we will continue to monitor Accu-Cheks and her diabetes medication regimen will be adjusted as needed. We will follow-up troponins and EKGs. CTA of the chest was done which did not show any pulmonary embolus. Ultrasound of the lower extremities was negative for DVT. 5. Tobacco smoking The patient was counseled on tobacco and alcohol abuse. She was advised to quit. Lovenox for DVT prophylaxis.
[2018-08-24] MEDS: Enoxaparin Inj 40 MG/0.4 ML Syringe SQ SCH (17:18)
[2018-08-24] MEDS: hydrALAZINE 25 MG Tablet PO SCH (17:54)
[2018-08-24] MEDS ORDERED: Magnesium Sulfate Inj 4 GM in Dextrose 5% in Water Inj 100 ML IV.SIG ONE ×2 (18:00)
[2018-08-24] MEDS ORDERED: Labetalol HCl Inj 100 MG/20 ML Vial IV.PUSH ONE (19:26)
[2018-08-24 23:54] LABS: Magnesium 2.7 mg/dL (1.5-2.5)
[2018-08-25 06:35] LABS: Calcium 8.7 mg/dL (8.5-10.1); Carbon Dioxide 34.8 meq/L (21.0-32.0); Potassium 3.5 meq/L (3.5-5.1)
[2018-08-25] MEDS: hydrALAZINE 25 MG Tablet PO SCH ×3 (09:00→17:13)
--- NOTE | 2018-08-25 10:59 | ECG ---
Date Performed: 08/24/2018 Time Performed: 12:37:13 PTAGE: 47 years EKG: SINUS TACHYCARDIA POSSIBLE LEFT ATRIAL ENLARGEMENT ABNORMAL RHYTHM ECG BASELINE ARTIFACT Co mpared to PREVIOUS TRACING the patient is now tachycardic PREVIOUS TRACIN06/13/2017 18.37 DOCTOR: Trinity Gold Interpretating Date/Time 08/25/2018 10:58:00
[2018-08-25] MEDS ORDERED: Dextrose 50% in Water 50 ML Vial IV.PUSH PRN (11:28)
--- NOTE | 2018-08-25 11:32 | P.PNIM ---
Subjective Interval history: Patient says she is feeling a little better today. Denies any chest pain. Says that bilateral lower extremity edema is improving. Reports shortness of breath is improving. She ran out of her blood pressure meds a while back. Physical Exam Vital signs: Vital Signs 08/24/18 12:23 08/24/18 12:52 08/24/18 13:51 Temperature 98.6 F Pulse Rate 106 H 96 H 96 H Respiratory Rate 24 17 17 Blood Pressure 214/101 H 193/92 H 221/107 H Pulse Oximetry 95 96 96 08/24/18 15:09 08/24/18 16:10 08/24/18 17:57 Temperature Pulse Rate 98 H 101 H 95 H Respiratory Rate 17 18 17 Blood Pressure 156/87 H 174/90 H 197/91 H Pulse Oximetry 96 98 96 08/24/18 19:09 08/24/18 20:02 08/24/18 20:27 Temperature Pulse Rate 101 H 78 79 Respiratory Rate 20 20 17 Blood Pressure 204/95 H 159/85 H 148/87 H Pulse Oximetry 94 L 94 L 100 08/24/18 20:45 08/24/18 21:30 08/24/18 22:10 Temperature 97.3 F L Pulse Rate 89 90 89 Respiratory Rate 22 Blood Pressure 164/85 H Pulse Oximetry 93 L 08/25/18 00:00 08/25/18 04:00 08/25/18 08:00 Temperature 97.5 F L 97.8 F 98.9 F Pulse Rate 93 H 100 H 105 H Respiratory Rate 20 20 18 Blood Pressure 158/88 H 168/88 H 160/100 H Pulse Oximetry 96 93 L 88 L Intake & Output 08/24/18 08/25/18 08/25/18 18:59 06:59 18:59 Intake Total 468 / 468 Balance 468 / 468 Weight 145.15 kg 125.7 kg Intake: IV 108 / 108 Magnesium Sulfate Inj 4 GM In 108 / 108 D5W Inj 100 ML @ 25 mls/hr IV. SIG ONCE ONE Rx#:[id number] Oral 360 / 360 Other: # Voids 3 Date of Last Bowel Movement 08/24/18 Weight On Admission 123.4 kg Narrative: GENERAL: Patient sitting up in bed. Appears comfortable. On 3 L 02 SKIN: Warm and dry. HEAD: Normocephalic. EYES: No scleral icterus. No injection or drainage. NECK: Supple, trachea midline. JVD assessment difficult secondary to body habitus. CARDIOVASCULAR: Regular rate and rhythm without murmurs, gallops, or rubs. RESPIRATORY: Breath sounds equal bilaterally. No accessory muscle use. GASTROINTESTINAL: Abdomen soft, non-tender, nondistended. MUSCULOSKELETAL: No cyanosis, +3 peripheral edema. No weeping. No broken skin. BACK: Nontender without obvious deformity. No CVA tenderness. Results - Labs CBC & Chem 7: 08/24/18 12:45 08/25/18 04:33 Laboratory Results - last 24 hr 08/24/18 08/24/18 08/24/18 12:45 12:45 12:45 WBC 6.1 RBC 4.62 Hgb 11.2 L Hct 35.6 MCV 77.2 L MCH 24.3 L MCHC 31.5 L RDW 18.2 H Plt Count 243 MPV 8.5 Neut % (Auto) 76.9 H Lymph % (Auto) 16.8 [place] % (Auto) 5.2 Eos % (Auto) 0.8 Baso % (Auto) 0.3 Neut # (Auto) 4.7 Lymph # (Auto) 1.0 [place] # (Auto) 0.3 Eos # (Auto) 0.0 Baso # (Auto) 0.0 WBC Differential . Differential Comment Auto diff final PT 11.4 INR 1.1 APTT 24.9 Sodium 141 Potassium 3.2 L Chloride 100 Carbon Dioxide 34.5 H Anion Gap 7 BUN 12 Creatinine 1.20 H Estimated GFR 58 L Random Glucose 117 H Calcium 7.8 L Magnesium Total Bilirubin 0.4 AST 28 ALT 45 Alkaline Phosphatase 60 Total Creatine Kinase Troponin I 0.02 B-Natriuretic Peptide Total Protein 7.6 Albumin 3.1 L 08/24/18 08/24/18 08/24/18 12:45 12:45 17:15 WBC RBC Hgb Hct MCV MCH MCHC RDW Plt Count MPV Neut % (Auto) Lymph % (Auto) [place] % (Auto) Eos % (Auto) Baso % (Auto) Neut # (Auto) Lymph # (Auto) [place] # (Auto) Eos # (Auto) Baso # (Auto) WBC Differential Differential Comment PT INR APTT Sodium Potassium Chloride Carbon Dioxide Anion Gap BUN Creatinine Estimated GFR Random Glucose Calcium Magnesium 1.7 Total Bilirubin AST ALT Alkaline Phosphatase Total Creatine Kinase 93 Troponin I 0.03 B-Natriuretic Peptide 369 H Total Protein Albumin 08/24/18 08/25/18 23:00 04:33 WBC RBC Hgb Hct MCV MCH MCHC RDW Plt Count MPV Neut % (Auto) Lymph % (Auto) [place] % (Auto) Eos % (Auto) Baso % (Auto) Neut # (Auto) Lymph # (Auto) [place] # (Auto) Eos # (Auto) Baso # (Auto) WBC Differential Differential Comment PT INR APTT Sodium 140 Potassium 3.5 Chloride 97 L Carbon Dioxide 34.8 H Anion Gap 8 BUN 14 Creatinine 1.27 H Estimated GFR 55 L Random Glucose 95 Calcium 8.7 D Magnesium 2.7 H D Total Bilirubin AST ALT Alkaline Phosphatase Total Creatine Kinase Troponin I Less than 0.02 L B-Natriuretic Peptide Total Protein Albumin - Imaging Impressions Chest X-Ray 08/24/18 12:34 CONCLUSION: Cardiomegaly. Venous Doppler Study 08/24/18 12:44 CONCLUSION: 1. No evidence of DVT. Chest CTA 08/24/18 12:45 CONCLUSION: 1. No evidence of pulmonary embolism. 2. A few mild scattered interstitial infiltrates are noted bilaterally. 3. Compensated cardiomegaly. Assessment and Plan - Plan This patient is a 47-year-old obese -L[place] female with a diagnosis of hypertension, and diabetes mellitus type 2. The patient presents to our emergency department with complaints of shortness of breath and lower extremity swelling that has been progressively been getting worse over the past 3 weeks. She states that she sleeps in her bathroom because she sits on the toilet and is more comfortable in the bathroom in a sitting position then sleeping laying flat in her bed. She has been doing this for months. Today she was feeling short of breath and her legs were feeling heavy so she came into the emergency department to be evaluated. She denies having any significant chest pain however did complain of bilateral medial knee pain and tightness in her skin of her lower extremities. She ran out of her medications approximately 1 week ago. 1. Acute new onset CHF exacerbation 2. Uncontrolled hypertension 3. Acute kidney injury likely secondary to #1 4. Diabetes mellitus type 2 The patient presents with symptoms mentioned above. On physical examination she has bibasilar crackles, BNP is elevated. Patient complains of shortness of breath when lying flat. Chest x-ray shows cardiomegaly. She will be started on Lasix 40 mg IV every 8 hours. She should be reevaluated tomorrow and her IV Lasix dosage can be adjusted as needed. A 2D echocardiogram has been ordered and should be followed up. The patient takes amlodipine at home however he ran out of medications while at home. Blood pressure on my examination his systolic around 165. After the initiation of IV diuresis if she continues to be hypertensive she will be started on antihypertensives. Serum creatinine is slightly elevated likely secondary to poor perfusion from CHF exacerbation. Patient was started on a low-dose insulin sliding scale, we will continue to monitor Accu-Cheks and her diabetes medication regimen will be adjusted as needed. We will follow-up troponins and EKGs. CTA of the chest was done which did not show any pulmonary embolus. Ultrasound of the lower extremities was negative for DVT. = 10/. Shortness of breath improving. We will continue to diurese. Consult pulmonology secondary to severe sleep apnea. Echo will check TSH, cortisol. add iss. 5. Tobacco smoking The patient was counseled on tobacco and alcohol abuse. She was advised to quit. Discharge Planning: Discharge home when improved.
--- NOTE | 2018-08-25 12:37 | ECHRPT ---
Indication: HEART FAILURE CONCLUSIONS Normal left ventricular size. Moderate concentric left ventricular hypertrophy. The left ventricular systolic function is normal with an estimated ejection fraction in the range of 55-60%. The right ventricle is moderately dilated. The right ventricular systoilc function is normal. [id number] mitral valve regurgitation. There is moderate tricuspid regurgitation. The estimated pulmonary arterial pressure is 88.5 mmHg. Trivial pulmonary valve regurgitation. BP: / HR: Rhythm: Sinus MEASUREMENTS (Male / Female) Normal Values Technical Quality:Fair 2D ECHO LV Diastolic Diameter PLAX 4.3 cm 4.2 - 5.9 / 3.9 - 5.3 cm LV Systolic Diameter PLAX 3.0 cm IVS Diastolic Thickness 1.6 cm 0.6 - 1.0 / 0.6 - 0.9 cm LVPW Diastolic Thickness 1.6 cm 0.6 - 1.0 / 0.6 - 0.9 cm LV Relative Wall Thickness 0.7 RV Internal Dim ED PLAX 3.2 cm LVOT Diameter 2.0 cm Aortic Root Diameter 2.8 cm LA Systolic Diameter LX 3.5 cm 3.0 - 4.0 / 2.7 - 3.8 cm M-MODE AV Cusp Separation MM 2.0 cm DOPPLER AV Peak Velocity 245.0 cm/s AV Peak Gradient 24.0 mmHg AV Mean Gradient 15.0 mmHg AV Velocity Time Integral 35.1 cm LVOT Peak Velocity 182.0 cm/s LVOT Peak Gradient 13.2 mmHg LVOT Velocity Time Integral 26.6 cm AV Area Cont Eq vti 2.4 cm AV Area Cont Eq pk 2.3 cm Mitral E Point Velocity 72.0 cm/s Mitral A Point Velocity 98.7 cm/s Mitral E to A Ratio 0.7 LV E' Lateral Velocity 7.4 cm/s Mitral E to LV E' Lateral Ratio 9.7 LV E' Septal Velocity 8.1 cm/s Mitral E to LV E' Septal Ratio 8.9 TR Peak Velocity 443.0 cm/s TR Peak Gradient 78.5 mmHg Right Atrial Pressure 10.0 mmHg Pulmonary Artery Systolic Pressu 88.5 mmHg Right Ventricular Systolic Press 88.5 mmHg PV Peak Velocity 116.0 cm/s PV Peak Gradient 5.4 mmHg FINDINGS LEFT VENTRICLE Normal left ventricular size. Moderate concentric left ventricular hypertrophy. The left ventricular systolic function is normal with an estimated ejection fraction in the range of 55-60%. RIGHT VENTRICLE The right ventricle is moderately dilated. The right ventricular systoilc function is normal. LEFT ATRIUM The left atrial size is normal. RIGHT ATRIUM The right atrial size is normal. ATRIAL SEPTUM The interatrial septum not well visualized. AORTA The aortic root and proximal ascending aorta are normal in size on limited imaging. MITRAL VALVE [id number] mitral valve regurgitation. AORTIC VALVE Trileaflet aortic valve. No aortic valve stenosis or regurgitation. TRICUSPID VALVE There is moderate tricuspid regurgitation. The estimated pulmonary arterial pressure is 88.5 mmHg. PULMONARY VALVE Trivial pulmonary valve regurgitation. VESSELS The inferior vena cava was not well visualized. PERICARDIUM No pericardial effusion. Cleo Rodas MD (Electronically Signed) Final Date:25 August 2018 12:36
[2018-08-25 12:55] LABS: Free T4 (Free Thyroxine) 0.97 ng/dL (0.76-1.46); Thyroid Stimulating Hormone 1.1 uIU/mL (0.358-3.740)
[2018-08-25] MEDS: Insulin NovoLOG Aspart Correctional Sugar Inj SQ SCH ×3 (13:11→20:32)
[2018-08-25] MEDS: ISOSORBIDE DINITRATE 40 MG PO SCH ×2 (13:57→13:59)
[2018-08-25 16:47] LABS: Hemoglobin A1c 6.9 % (4.3-6.0)
[2018-08-25] MEDS: Enoxaparin Inj 40 MG/0.4 ML Syringe SQ SCH (17:13)
[2018-08-25 17:44] LABS: ABG Base Excess 10.7 mmol/L (-2-2); ABG PCO2 72 mmHg (38-42); ABG PO2 77 mmHg (61-120)
--- NOTE | 2018-08-25 19:30 | MB ---
cc: Kwadwo Santos MD DATE: 08/25/2018 HISTORY OF PRESENT ILLNESS: She came in complaining of worsening of shortness of breath for the last 2 weeks and increased swelling in her legs. Did not have any chest pain. No fever, chills. No night sweats. She does admit that she cannot sleep in the bed because she gets short of breath. CT of the chest was done, which shows no pulmonary embolism. She shows mild scattered interstitial infiltrate and compensated cardiomegaly. PAST MEDICAL HISTORY: Significant for history of hypertension, diabetes mellitus, likely sleep apnea. She has never had any sleep study done. MEDICATIONS: She is currently takin. Aspirin 81 mg a day. 2. Lovenox 40 mg a day. 3. Lasix 40 mg q. 8 hours. 4. Hydralazine 25 mg 3 times a day. 5. She is on insulin. 6. Isosorbide 40 mg a day. ALLERGIES: SHE IS ALLERGIC TO LISINOPRIL AND PENICILLIN. SOCIAL HISTORY: She is , lives with her boyfriend, has history of smoking and cut down to 3 cigarettes a day, drinks socially. 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 FAMILY HISTORY: Noncontributory. REVIEW OF SYSTEMS: She has gained weight, increased swelling in her legs. No seizure, stroke. No DVT or pulmonary embolus or combination. PHYSICAL EXAMINATION: GENERAL: Obese female, mildly short of breath. VITAL SIGNS: Blood pressure 182/104, heart rate 96, respiration 18, temperature 98.4. HEENT: Pupils are equal and reactive. Oral mucosa and nasal mucosa normal. NECK: Supple. No JVP not raised. LUNGS: Equal bilaterally. No rhonchi or wheezes. HEART: S1, S2 normal. ABDOMEN: Obese, nontender. Bowel sounds are present. EXTREMITIES: 1+ pedal edema. IMPRESSION: 1. Symptoms suggestive of sleep apnea. 2. Morbid obesity. 3. Obesity hypoventilation syndrome. 4. Hypertension. 5. Diabetes mellitus. PLAN: I will check her pulmonary function study, also check her blood gas. She will need a sleep study as an outpatient. Monitor her blood pressure and blood sugar to advise her compliance to medication and to establish with a regular physician. Further treatment will depend upon the course in the hospital. Thank you Dr. Ahuja for this consultation. MD Arnoldo Stubbs , 05:19 PM , 05:29 PM [facility]
[2018-08-25] MEDS: Acetaminophen 325 MG Tablet PO PRN (23:37)
--- NOTE | 2018-08-26 07:01 | P.CONCA ---
History of Present Illness Service: Cardiology Primary Care Provider: No Primary Care Physician Family Provider: No Primary Care Physician Chief Complaint: Shortness of Breath History of Present Illness: Very pleasant 47 year old no known prior history of cardiac problems aside form salt indiscretion. She presented with shortness of breath and CHF. Currently no CP. She does endorse PND/orthopnea/LE. She also has concomitant JEAN. Review of Systems All other systems reviewed negative except as stated in HPI [facility] - History History Provided By: Patient, Medical Record - Tobacco History Second Hand Smoke Exposure: Yes Tobacco Use In Past 30 Days: Yes Smoking Status: Light tobacco smoker Tobacco Type: Cigarettes - Alcohol History How Often Do You Have a Drink Containing Alcohol: 2 to 3 times a week - Substance Use History Substance History: No History of Abuse - Travel History Recent Travel in the [place] Within the Last 8 Weeks: No Recent Travel Out of the Country Within the Last 8 Weeks: No - Immunization History Tetanus Immunization: >5 Years Hx Influenza Vaccine This Season: No Medications and Allergies Active Medications: Active Medications Acetaminophen (Tylenol) 650 mg PO Q4H PRN PRN Reason: fever, GOVEA Last Admin: 08/25/18 23:37 Dose: 650 mg Aspirin (Aspirin Chew) 81 mg PO DAILY [facility] Last Admin: 08/25/18 09:00 Dose: 81 mg Dextrose (D50w Vial) 50 ml IV.PUSH UNSCH PRN PRN Reason: PER HYPOGLYCEMIA PROTOCOL Enoxaparin Sodium (Lovenox Inj) 40 mg SQ Q24H [facility] Last Admin: 08/25/18 17:13 Dose: 40 mg Furosemide (Lasix Inj) 40 mg IV.PUSH Q8HR [facility] Last Admin: 08/26/18 05:19 Dose: 40 mg Glucagon (Glucagon Inj) 1 mg OTHER PRN PRN PRN Reason: for Hypoglycemia Protocol Hydralazine HCl (Apresoline) 25 mg PO TID [facility] Last Admin: 08/25/18 17:13 Dose: 25 mg Insulin Aspart (Novolog Insulin Correctional Sugar Inj) 0 unit SQ ACHS [facility]; Protocol Last Admin: 08/25/18 20:32 Dose: Not Given Isosorbide Dinitrate (Dilatrate Sr) 40 mg PO BID@0800,1400 [facility] Last Admin: 08/25/18 13:59 Dose: Not Given Sodium Chloride (Ns Flush) 2 ml IV.FLUSH BID [facility] Last Admin: 08/25/18 21:37 Dose: 2 ml Sodium Chloride (Ns Flush) 2 ml IV.FLUSH UNSCH PRN PRN Reason: FLUSH AFTER USING IV ACCESS Last Admin: 08/25/18 06:01 Dose: 2 ml Allergies Allergy/AdvReac Type Severity Reaction Status Date / Time lisinopril AdvReac Severe Swelling Verified 08/24/18 19:05 Home Medications Medication Instructions Recorded Confirmed Type Unable to Obtain Home Meds 08/24/18 08/24/18 History Exam Vital signs: Vital Signs 08/25/18 08:00 08/25/18 12:00 08/25/18 16:00 Temperature 98.9 F 98.6 F 98.4 F Pulse Rate 105 H 99 H 96 H Respiratory Rate 18 18 18 Blood Pressure 160/100 H 168/89 H 182/104 H Pulse Oximetry 88 L 91 L 92 L 08/25/18 19:45 08/25/18 20:00 08/25/18 20:43 Temperature 99.4 F Pulse Rate 98 H 99 H Respiratory Rate 20 Blood Pressure 158/96 H Pulse Oximetry 96 94 L 08/25/18 23:45 08/26/18 00:00 08/26/18 00:45 Temperature 99.5 F Pulse Rate 100 H 108 H Respiratory Rate 20 Blood Pressure 188/98 H Pulse Oximetry 95 93 L 08/26/18 01:10 08/26/18 03:39 08/26/18 03:45 Temperature Pulse Rate 99 H Respiratory Rate Blood Pressure Pulse Oximetry 94 L 92 L 08/26/18 04:00 Temperature 97.1 F L Pulse Rate 98 H Respiratory Rate 20 Blood Pressure 186/98 H Pulse Oximetry 91 L Intake & Output 08/25/18 08/25/18 08/26/18 06:59 18:59 06:59 Intake Total 468 / 468 720 / 720 420 / 420 Output Total 2200 / 2200 Balance 468 / 468 -1480 / -1480 420 / 420 Weight 125.7 kg Intake: IV 108 / 108 Magnesium Sulfate Inj 4 GM In 108 / 108 D5W Inj 100 ML @ 25 mls/hr IV. SIG ONCE ONE Rx#:[id number] Oral 360 / 360 720 / 720 420 / 420 Output: Urine 2200 / 2200 Other: # Voids 3 3 Date of Last Bowel Movement 08/24/18 08/25/18 Weight On Admission 123.4 kg - Constitutional no acute distress (healthy weight) - Routine HEENT Exam Eye: Present: EOMI, PERRL - Routine Neck Exam Present: JVD (JVP 12 cm) - Routine Respiratory Exam Present: crackles (bases bilaterally) - Routine Cardiovascular Exam Present: RRR, S1, S2 - Routine Abdominal Exam Present: soft, normoactive bowel sounds - Routine Extremities Exam Present: edema (pitting) - Routine Neurological Exam Present: alert, oriented X3, CN II-XII intact - Routine Psychiatric Exam Present: normal affect Results 08/24/18 12:45 08/25/18 04:33 Cardiac Enzymes 08/24/18 08/24/18 08/24/18 Range/Units 12:45 12:45 17:15 AST 28 (15-37) U/L Troponin I 0.02 0.03 (0.02-0.05) ng/mL B-Natriuretic Peptide 369 H (0-100) pg/mL 08/24/18 Range/Units 23:00 AST (15-37) U/L Troponin I Less than 0.02 L (0.02-0.05) ng/mL B-Natriuretic Peptide (0-100) pg/mL Coagulation 08/24/18 08/24/18 Range/Units 12:45 12:45 PT 11.4 (9.8-11.6) sec APTT 24.9 (24.3-30.1) sec B-Natriuretic Peptide 369 H (0-100) pg/mL CBC 08/24/18 Range/Units 12:45 WBC 6.1 (4.0-11.0) th/mm3 RBC 4.62 (4.00-5.30) mil/mm3 Hgb 11.2 L (11.6-15.3) gm/dL Hct 35.6 (35.0-46.0) % Plt Count 243 (150-450) th/mm3 Neut # (Auto) 4.7 (1.8-7.7) th/mm3 Lymph # (Auto) 1.0 (1.0-4.8) th/mm3 [place] # (Auto) 0.3 (0.0-0.9) th/mm3 Eos # (Auto) 0.0 (0.0-0.4) th/mm3 Baso # (Auto) 0.0 (0.0-0.2) th/mm3 Comprehensive Metabolic Panel 08/24/18 08/25/18 Range/Units 12:45 04:33 Sodium 141 140 (136-145) meq/L Potassium 3.2 L 3.5 (3.5-5.1) meq/L Chloride 100 97 L (98-107) meq/L Carbon Dioxide 34.5 H 34.8 H (21.0-32.0) meq/L BUN 12 14 (7-18) mg/dL Creatinine 1.20 H 1.27 H (0.50-1.00) mg/dL Calcium 7.8 L 8.7 D (8.5-10.1) mg/dL AST 28 (15-37) U/L ALT 45 (10-53) U/L Alkaline Phosphatase 60 (45-117) U/L Total Protein 7.6 (6.4-8.2) g/dL Albumin 3.1 L (3.4-5.0) g/dL Intake and Output 08/25/18 08/25/18 08/26/18 14:59 22:59 06:59 Intake Total 720 / 720 420 / 420 Output Total 2200 / 2200 Balance -1480 / -1480 420 / 420 Intake: Oral 720 / 720 420 / 420 Output: Urine 2200 / 2200 Other: # Voids 3 Date of Last Bowel Movement 08/25/18 - Imaging and Cardiology Imaging: Impressions Chest X-Ray 08/24/18 12:34 CONCLUSION: Cardiomegaly. Venous Doppler Study 08/24/18 12:44 CONCLUSION: 1. No evidence of DVT. Chest CTA 08/24/18 12:45 CONCLUSION: 1. No evidence of pulmonary embolism. 2. A few mild scattered interstitial infiltrates are noted bilaterally. 3. Compensated cardiomegaly. Assessment and Plan - Plan CHF- continue IV lasix diuresis, Likely diastolic dysfunction. CHF teaching provided. Will need follow up and upon discharge will need po diuretics. Thank you for allowing me to participate. Call with any questions.
[2018-08-26 07:45] LABS: Baso % (Auto) 0.2 % (0.0-2.0); Eos # (Auto) 0.1 th/mm3 (0.0-0.4); Eos % (Auto) 1.3 % (0.0-4.0); Hematocrit 37.8 % (35.0-46.0); Hemoglobin 11.3 gm/dL (11.6-15.3); Lymph # (Auto) 1.3 th/mm3 (1.0-4.8); Lymph % (Auto) 20.6 % (9.0-44.0); Mean Corpuscular Hemoglobin 23.5 pg (27.0-34.0); Mean Corpuscular Volume 78.9 fL (80.0-100.0); Mean Platelet Volume 8.6 fL (7.0-11.0); Mono # (Auto) 0.5 th/mm3 (0.0-0.9); Mono % (Auto) 7.3 % (0.0-8.0); Neut # (Auto) 4.4 th/mm3 (1.8-7.7); Neut % (Auto) 70.6 % (16.0-70.0); Platelet Count 243 th/mm3 (150-450); Red Blood Count 4.79 mil/mm3 (4.00-5.30); Red Cell Distribution Width 18.2 % (11.6-17.2); White Blood Count 6.3 th/mm3 (4.0-11.0)
[2018-08-26 07:52] LABS: Mean Corpuscular HGB Conc 29.8 % (32.0-36.0)
[2018-08-26 08:16] LABS: Albumin 3.3 g/dL (3.4-5.0); Calcium 8.4 mg/dL (8.5-10.1); Carbon Dioxide 36.3 meq/L (21.0-32.0); Magnesium 1.7 mg/dL (1.5-2.5); Phosphorus 3.2 mg/dL (2.5-4.9); Potassium 3.2 meq/L (3.5-5.1)
[2018-08-26] MEDS: hydrALAZINE 25 MG Tablet PO SCH ×3 (08:54→18:02)
[2018-08-26] MEDS: ISOSORBIDE DINITRATE 40 MG PO SCH ×2 (08:54→14:40)
[2018-08-26] MEDS: Insulin NovoLOG Aspart Correctional Sugar Inj SQ SCH ×4 (09:01→21:34)
[2018-08-26] MEDS ORDERED: acetaZOLAMIDE 250 MG TABLET PO ONE (10:12)
[2018-08-26] MEDS: Acetaminophen 325 MG Tablet PO PRN (17:33)
[2018-08-26] MEDS: Enoxaparin Inj 40 MG/0.4 ML Syringe SQ SCH (18:02)
[2018-08-26] MEDS ORDERED: Metoprolol Tartrate 50 MG Tablet PO ONE (18:20)
--- NOTE | 2018-08-26 18:23 | P.PNPL ---
Subjective Interval history: 47 YO AA female with COPD,CHF,HTN ABG hypercapnoea Used BIPAP last night Slept better Less sob Physical Exam Vital signs: Vital Signs 08/25/18 19:45 08/25/18 20:00 08/25/18 20:43 Temperature 99.4 F Pulse Rate 98 H 99 H Respiratory Rate 20 Blood Pressure 158/96 H Pulse Oximetry 96 94 L 08/25/18 23:45 08/26/18 00:00 08/26/18 00:45 Temperature 99.5 F Pulse Rate 100 H 108 H Respiratory Rate 20 Blood Pressure 188/98 H Pulse Oximetry 95 93 L 08/26/18 01:10 08/26/18 03:39 08/26/18 03:45 Temperature Pulse Rate 99 H Respiratory Rate Blood Pressure Pulse Oximetry 94 L 92 L 08/26/18 04:00 08/26/18 08:00 08/26/18 12:00 Temperature 97.1 F L 98.9 F 98.4 F Pulse Rate 98 H 97 H 100 H Respiratory Rate 20 20 20 Blood Pressure 186/98 H 190/102 H 185/102 H Pulse Oximetry 91 L 98 98 08/26/18 15:52 08/26/18 16:00 Temperature 97.9 F Pulse Rate 96 H 101 H Respiratory Rate 20 Blood Pressure 180/90 H Pulse Oximetry 95 Intake & Output 08/25/18 08/26/18 08/26/18 18:59 06:59 18:59 Intake Total 720 / 720 420 / 420 840 / 840 Output Total 2200 / 2200 Balance -1480 / -1480 420 / 420 840 / 840 Intake: Oral 720 / 720 420 / 420 840 / 840 Output: Urine 2200 / 2200 Other: # Voids 3 1,050 Date of Last Bowel Movement 08/25/18 08/24/18 08/25/18 GENERAL: Obese AA female, mild sob SKIN: Warm and dry. HEAD: Normocephalic. EYES: No scleral icterus. No injection or drainage. NECK: Supple, trachea midline. No JVD or lymphadenopathy. CARDIOVASCULAR: Regular rate and rhythm without murmurs, gallops, or rubs. RESPIRATORY: Breath sounds equal bilaterally. No accessory muscle use. GASTROINTESTINAL: Abdomen soft, non-tender, nondistended. MUSCULOSKELETAL: No cyanosis, or edema. BACK: Nontender without obvious deformity. No CVA tenderness. Assessment and Plan - Plan IMPRESSION: 1. Symptoms suggestive of sleep apnea. 2. Morbid obesity. 3. Obesity hypoventilation syndrome. 4. Hypertension. 5. Diabetes mellitus. PLAN: Aerosol nebs BIPAP at night Diurease monitor lytes PFT Will need sleep study as out pt
[2018-08-26] MEDS ORDERED: hydrALAZINE 25 MG Tablet PO SCH (18:50)
--- NOTE | 2018-08-26 18:54 | P.PNIM ---
Subjective Interval history: patient says she is feeling better today. Denies any chest pain. Shortness breath improving. Physical Exam Vital signs: Vital Signs 08/25/18 19:45 08/25/18 20:00 08/25/18 20:43 Temperature 99.4 F Pulse Rate 98 H 99 H Respiratory Rate 20 Blood Pressure 158/96 H Pulse Oximetry 96 94 L 08/25/18 23:45 08/26/18 00:00 08/26/18 00:45 Temperature 99.5 F Pulse Rate 100 H 108 H Respiratory Rate 20 Blood Pressure 188/98 H Pulse Oximetry 95 93 L 08/26/18 01:10 08/26/18 03:39 08/26/18 03:45 Temperature Pulse Rate 99 H Respiratory Rate Blood Pressure Pulse Oximetry 94 L 92 L 08/26/18 04:00 08/26/18 08:00 08/26/18 12:00 Temperature 97.1 F L 98.9 F 98.4 F Pulse Rate 98 H 97 H 100 H Respiratory Rate 20 20 20 Blood Pressure 186/98 H 190/102 H 185/102 H Pulse Oximetry 91 L 98 98 08/26/18 15:52 08/26/18 16:00 Temperature 97.9 F Pulse Rate 96 H 101 H Respiratory Rate 20 Blood Pressure 180/90 H Pulse Oximetry 95 Intake & Output 08/25/18 08/26/18 08/26/18 18:59 06:59 18:59 Intake Total 720 / 720 420 / 420 840 / 840 Output Total 2200 / 2200 Balance -1480 / -1480 420 / 420 840 / 840 Intake: Oral 720 / 720 420 / 420 840 / 840 Output: Urine 2200 / 2200 Other: # Voids 3 1,050 Date of Last Bowel Movement 08/25/18 08/24/18 08/25/18 Narrative: GENERAL: Patient sitting up in bed. Appears comfortable. smiling today. SKIN: Warm and dry. HEAD: Normocephalic. EYES: No scleral icterus. No injection or drainage. NECK: Supple, trachea midline. JVD assessment difficult secondary to body habitus. CARDIOVASCULAR: Regular rate and rhythm without murmurs, gallops, or rubs. RESPIRATORY: Breath sounds equal bilaterally. No accessory muscle use. GASTROINTESTINAL: Abdomen soft, non-tender, nondistended. MUSCULOSKELETAL: No cyanosis, +3 peripheral edema, improvement from yesterday. No weeping. No broken skin. BACK: Nontender without obvious deformity. No CVA tenderness. Results - Labs CBC & Chem 7: 08/26/18 06:15 08/26/18 06:15 Laboratory Results - last 24 hr 08/26/18 08/26/18 08/26/18 06:15 06:15 08:00 WBC 6.3 RBC 4.79 Hgb 11.3 L Hct 37.8 MCV 78.9 L MCH 23.5 L MCHC 29.8 L RDW 18.2 H Plt Count 243 MPV 8.6 Neut % (Auto) 70.6 H Lymph % (Auto) 20.6 [place] % (Auto) 7.3 Eos % (Auto) 1.3 Baso % (Auto) 0.2 Neut # (Auto) 4.4 Lymph # (Auto) 1.3 [place] # (Auto) 0.5 Eos # (Auto) 0.1 Baso # (Auto) 0.0 WBC Differential . Differential Comment Auto diff final Sodium 139 Potassium 3.2 L Chloride 94 L Carbon Dioxide 36.3 H Anion Gap 9 BUN 13 Creatinine 1.14 H Estimated GFR 62 L POC Glucose 109 Random Glucose 87 Calcium 8.4 L Phosphorus 3.2 Magnesium 1.7 D Albumin 3.3 L 08/26/18 17:35 WBC RBC Hgb Hct MCV MCH MCHC RDW Plt Count MPV Neut % (Auto) Lymph % (Auto) [place] % (Auto) Eos % (Auto) Baso % (Auto) Neut # (Auto) Lymph # (Auto) [place] # (Auto) Eos # (Auto) Baso # (Auto) WBC Differential Differential Comment Sodium Potassium Chloride Carbon Dioxide Anion Gap BUN Creatinine Estimated GFR POC Glucose 108 Random Glucose Calcium Phosphorus Magnesium Albumin Assessment and Plan - Plan This patient is a 47-year-old obese -[place] female with a diagnosis of hypertension, and diabetes mellitus type 2. The patient presents to our emergency department with complaints of shortness of breath and lower extremity swelling that has been progressively been getting worse over the past 3 weeks. She states that she sleeps in her bathroom because she sits on the toilet and is more comfortable in the bathroom in a sitting position then sleeping laying flat in her bed. She has been doing this for months. Today she was feeling short of breath and her legs were feeling heavy so she came into the emergency department to be evaluated. She denies having any significant chest pain however did complain of bilateral medial knee pain and tightness in her skin of her lower extremities. She ran out of her medications approximately 1 week ago. 1. Acute new onset CHF exacerbation 2. Uncontrolled hypertension 3. Acute kidney injury likely secondary to #1 4. Diabetes mellitus type 2 The patient presents with symptoms mentioned above. On physical examination she has bibasilar crackles, BNP is elevated. Patient complains of shortness of breath when lying flat. Chest x-ray shows cardiomegaly. She will be started on Lasix 40 mg IV every 8 hours. She should be reevaluated tomorrow and her IV Lasix dosage can be adjusted as needed. A 2D echocardiogram has been ordered and should be followed up. The patient takes amlodipine at home however he ran out of medications while at home. Blood pressure on my examination his systolic around 165. After the initiation of IV diuresis if she continues to be hypertensive she will be started on antihypertensives. Serum creatinine is slightly elevated likely secondary to poor perfusion from CHF exacerbation. Patient was started on a low-dose insulin sliding scale, we will continue to monitor Accu-Cheks and her diabetes medication regimen will be adjusted as needed. We will follow-up troponins and EKGs. CTA of the chest was done which did not show any pulmonary embolus. Ultrasound of the lower extremities was negative for DVT. = 08/25. Shortness of breath improving. We will continue to diurese. Consult pulmonology secondary to severe sleep apnea. Echo will check TSH, cortisol. add iss. =08/26. shortness of Breath Improving with Diuresis. Will Add Beta Nestor, increase hydralazine. discussed with nurse 5. Tobacco smoking The patient was counseled on tobacco and alcohol abuse. She was advised to quit. Discharge Planning: Discharge home when improved. PT recommends home without home health the patient reoccurring oxygen.Home oxygen evaluation
[2018-08-26 22:20] LABS: % Iron Saturation 7.1 % (20-50)
[2018-08-27 08:10] LABS: Calcium 7.8 mg/dL (8.5-10.1); Carbon Dioxide 36.1 meq/L (21.0-32.0); Magnesium 1.8 mg/dL (1.5-2.5); Potassium 3.6 meq/L (3.5-5.1)
[2018-08-27 08:11] LABS: Phosphorus 3.6 mg/dL (2.5-4.9)
[2018-08-27] MEDS: Metoprolol Tartrate 25 MG Tablet PO SCH ×2 (08:38→21:03)
[2018-08-27] MEDS: Ferrous Sulfate 325 MG Tablet PO SCH ×2 (08:38→21:03)
[2018-08-27] MEDS: ISOSORBIDE DINITRATE 40 MG PO SCH ×2 (08:38→13:27)
[2018-08-27] MEDS: Insulin NovoLOG Aspart Correctional Sugar Inj SQ SCH ×4 (08:40→21:04)
[2018-08-27 09:37] LABS: ABG Base Excess 11.3 mmol/L (-2-2); ABG PCO2 80 mmHg (38-42); ABG PO2 71 mmHg (61-120)
[2018-08-27] MEDS ORDERED: acetaZOLAMIDE 250 MG TABLET PO ONE (10:00)
--- NOTE | 2018-08-27 10:09 | P.PNIM ---
Subjective Interval history: Patient says she is feeling all right, shortness of breath is improving. Says she still does not feel comfortable going home. He said he did not have BiPAP placed on overnight. Denies any chest pain. Physical Exam Vital signs: Vital Signs 08/26/18 12:00 08/26/18 15:52 08/26/18 16:00 Temperature 98.4 F 97.9 F Pulse Rate 100 H 96 H 101 H Respiratory Rate 20 20 Blood Pressure 185/102 H 180/90 H Pulse Oximetry 98 95 Pulse Oximetry [Resting on Room Air] Pulse Oximetry [Resting with Oxygen] 08/26/18 19:45 08/26/18 20:00 08/27/18 00:00 Temperature 97.8 F 98 F Pulse Rate 89 87 88 Respiratory Rate 18 18 Blood Pressure 197/113 H 158/64 H Pulse Oximetry 90 L 90 L Pulse Oximetry [Resting on Room Air] Pulse Oximetry [Resting with Oxygen] 08/27/18 04:00 08/27/18 08:00 08/27/18 09:41 Temperature 98 F 99.8 F H Pulse Rate 86 100 H Respiratory Rate 18 24 Blood Pressure 172/64 H 162/98 H Pulse Oximetry 94 L 95 95 Pulse Oximetry [Resting on Room Air] 86 L Pulse Oximetry [Resting with Oxygen] 95 Intake & Output 08/26/18 08/27/18 08/27/18 18:59 06:59 18:59 Intake Total 840 / 840 210 / 210 Balance 840 / 840 210 / 210 Intake: Oral 840 / 840 210 / 210 Other: # Voids 1,050 3 Date of Last Bowel Movement 08/25/18 08/26/18 Narrative: GENERAL: Patient sitting up in bed. Appears comfortable. Eating breakfast SKIN: Warm and dry. HEAD: Normocephalic. EYES: No scleral icterus. No injection or drainage. NECK: Supple, trachea midline. JVD assessment difficult secondary to body habitus. CARDIOVASCULAR: Regular rate and rhythm without murmurs, gallops, or rubs. RESPIRATORY: Breath sounds equal bilaterally. No accessory muscle use. GASTROINTESTINAL: Abdomen soft, non-tender, nondistended. MUSCULOSKELETAL: No cyanosis, +3 peripheral edema, continues improving.. No weeping. No broken skin. BACK: Nontender without obvious deformity. No CVA tenderness. Results - Labs CBC & Chem 7: 08/26/18 06:15 08/27/18 05:33 Laboratory Results - last 24 hr 08/26/18 08/26/18 08/26/18 06:15 17:35 20:05 Puncture Site Patient Temperature O2 Saturation ABG pH ABG pCO2 ABG pO2 ABG HCO3 ABG O2 Content ABG Base Excess ABG Methemoglobin Antelmo Test Hemoglobin Carboxyhemoglobin O2 Delivery Device Liter Flow Critical Value Sodium Potassium Chloride Carbon Dioxide Anion Gap BUN Creatinine Estimated GFR POC Glucose 108 141 H Random Glucose Calcium Phosphorus Magnesium Iron 40 L TIBC 561 H % Saturation 7.1 L Ferritin 9 Albumin 08/27/18 08/27/18 08/27/18 05:33 07:52 09:32 Puncture Site Left radial Patient Temperature 98.6 O2 Saturation 89 L* ABG pH 7.30 L ABG pCO2 80 H* ABG pO2 71 ABG HCO3 38 H ABG O2 Content 13.9 ABG Base Excess 11.3 H ABG Methemoglobin 1.2 Antelmo Test Present Hemoglobin 11.1 L Carboxyhemoglobin 1.9 O2 Delivery Device Nasal cannula Liter Flow 3.00 Critical Value Yes Sodium 141 Potassium 3.6 Chloride 94 L Carbon Dioxide 36.1 H Anion Gap 11 BUN 16 Creatinine 1.29 H Estimated GFR 54 L POC Glucose 103 Random Glucose 92 Calcium 7.8 L Phosphorus 3.6 Magnesium 1.8 Iron TIBC % Saturation Ferritin Albumin 3.0 L Assessment and Plan - Plan This patient is a 47-year-old obese -Citizen Of [place] female with a diagnosis of hypertension, and diabetes mellitus type 2. The patient presents to our emergency department with complaints of shortness of breath and lower extremity swelling that has been progressively been getting worse over the past 3 weeks. She states that she sleeps in her bathroom because she sits on the toilet and is more comfortable in the bathroom in a sitting position then sleeping laying flat in her bed. She has been doing this for months. Today she was feeling short of breath and her legs were feeling heavy so she came into the emergency department to be evaluated. She denies having any significant chest pain however did complain of bilateral medial knee pain and tightness in her skin of her lower extremities. She ran out of her medications approximately 1 week ago. 1. Acute new onset CHF exacerbation 2. Uncontrolled hypertension 3. Acute kidney injury likely secondary to #1 4. Diabetes mellitus type 2 The patient presents with symptoms mentioned above. On physical examination she has bibasilar crackles, BNP is elevated. Patient complains of shortness of breath when lying flat. Chest x-ray shows cardiomegaly. She will be started on Lasix 40 mg IV every 8 hours. She should be reevaluated tomorrow and her IV Lasix dosage can be adjusted as needed. A 2D echocardiogram has been ordered and should be followed up. The patient takes amlodipine at home however he ran out of medications while at home. Blood pressure on my examination his systolic around 165. After the initiation of IV diuresis if she continues to be hypertensive she will be started on antihypertensives. Serum creatinine is slightly elevated likely secondary to poor perfusion from CHF exacerbation. Patient was started on a low-dose insulin sliding scale, we will continue to monitor Accu-Cheks and her diabetes medication regimen will be adjusted as needed. We will follow-up troponins and EKGs. CTA of the chest was done which did not show any pulmonary embolus. Ultrasound of the lower extremities was negative for DVT. = 08/25. Shortness of breath improving. We will continue to diurese. Consult pulmonology secondary to severe sleep apnea. Echo will check TSH, cortisol. add iss. =08/26. shortness of Breath Improving with Diuresis. Will Add Beta Nestor, increase hydralazine. discussed with nurse = 08/27. Continues with shortness of breath, however improving. Repeat ABG with continued hypercapnia, PCO2 in the 80s. Allergy to lisinopril. Will add amlodipine. Will increase hydralazine. Continue diuresis. 5. Tobacco smoking The patient was counseled on tobacco and alcohol abuse. She was advised to quit. Discharge Planning: Discharge home when improved. PT recommends home without home health the patient continues requiring oxygen.Home oxygen evaluation = Though with hypercapnia we will need pulmonology clearance.
[2018-08-27] MEDS: amLODIPine 10 MG Tablet PO SCH (10:53)
[2018-08-27] MEDS: Enoxaparin Inj 40 MG/0.4 ML Syringe SQ SCH (18:09)
--- NOTE | 2018-08-27 19:57 | P.PNPL ---
Subjective Interval history: 47 YO AA female with COPD,CHF,HTN ABG hypercapnoea Did't use BIPAP last night Slept better Less sob Physical Exam Vital signs: Vital Signs 08/26/18 20:00 08/27/18 00:00 08/27/18 04:00 Temperature 97.8 F 98 F 98 F Pulse Rate 87 88 86 Respiratory Rate 18 Blood Pressure 197/113 H 158/64 H 172/64 H Pulse Oximetry 90 L 90 L 94 L Pulse Oximetry [Resting on Room Air] Pulse Oximetry [Resting with Oxygen] 08/27/18 08:00 08/27/18 09:41 08/27/18 12:00 Temperature 99.8 F H 98.5 F Pulse Rate 81 88 Respiratory Rate 20 32 H Blood Pressure 162/98 H 131/67 Pulse Oximetry 95 95 92 L Pulse Oximetry [Resting on Room Air] 86 L Pulse Oximetry [Resting with Oxygen] 95 08/27/18 16:00 Temperature 97.4 F L Pulse Rate 86 Respiratory Rate 21 Blood Pressure 180/84 H Pulse Oximetry 93 L Pulse Oximetry [Resting on Room Air] Pulse Oximetry [Resting with Oxygen] Intake & Output 08/27/18 08/27/18 08/28/18 06:59 18:59 06:59 Intake Total 210 / 210 Balance 210 / 210 Intake: Oral 210 / 210 Other Other: # Voids 3 Date of Last Bowel Movement 08/26/18 08/26/18 GENERAL: Obese AA female, mild sob SKIN: Warm and dry. HEAD: Normocephalic. EYES: No scleral icterus. No injection or drainage. NECK: Supple, trachea midline. No JVD or lymphadenopathy. CARDIOVASCULAR: Regular rate and rhythm without murmurs, gallops, or rubs. RESPIRATORY: Breath sounds equal bilaterally. No accessory muscle use. GASTROINTESTINAL: Abdomen soft, non-tender, nondistended. MUSCULOSKELETAL: No cyanosis, or edema. BACK: Nontender without obvious deformity. No CVA tenderness. Assessment and Plan - Plan IMPRESSION: 1. Symptoms suggestive of sleep apnea. 2. Morbid obesity. 3. Obesity hypoventilation syndrome. 4. Hypertension. 5. Diabetes mellitus. PLAN: Aerosol nebs BIPAP at night Diurease monitor lytes Will need sleep study as out pt
[2018-08-28] MEDS: Ferrous Sulfate 325 MG Tablet PO SCH ×2 (09:23→21:29)
[2018-08-28] MEDS: amLODIPine 10 MG Tablet PO SCH (09:23)
[2018-08-28] MEDS: Metoprolol Tartrate 25 MG Tablet PO SCH ×2 (09:24→21:29)
[2018-08-28] MEDS: Insulin NovoLOG Aspart Correctional Sugar Inj SQ SCH ×4 (09:24→21:29)
[2018-08-28] MEDS: ISOSORBIDE DINITRATE 40 MG PO SCH ×2 (09:26→14:49)
--- NOTE | 2018-08-28 09:41 | P.PN ---
Subjective Interval history: Patient is resting comfortably in bed. She did not use BiPap last night, feels like "the machine is choking me." Her breathing is better. She is on O2. She denies fevers, chills, chest pain, SOB, nausea, vomiting, diarrhea, constipation. Physical Exam Vital signs: Vital Signs 08/27/18 09:41 08/27/18 12:00 08/27/18 16:00 Temperature 98.5 F 97.4 F L Pulse Rate 88 86 Respiratory Rate 32 H 21 Blood Pressure 131/67 180/84 H Pulse Oximetry 95 92 L 93 L Pulse Oximetry [Resting on Room Air] 86 L Pulse Oximetry [Resting with Oxygen] 95 08/27/18 20:00 08/27/18 20:24 08/28/18 00:00 Temperature 98 F 98.7 F Pulse Rate 102 H 108 H Respiratory Rate 16 22 Blood Pressure 157/87 H 136/56 L Pulse Oximetry 96 95 97 Pulse Oximetry [Resting on Room Air] Pulse Oximetry [Resting with Oxygen] 08/28/18 04:00 Temperature 98.7 F Pulse Rate 89 Respiratory Rate 16 Blood Pressure 138/71 Pulse Oximetry 92 L Pulse Oximetry [Resting on Room Air] Pulse Oximetry [Resting with Oxygen] Intake & Output 08/27/18 08/28/18 08/28/18 18:59 06:59 18:59 Intake Total 6 / 6 0 / 0 Balance 6 / 6 0 / 0 Weight 117 kg Intake: Oral 0 / 0 Other / 6 Other: # Voids 3 Date of Last Bowel Movement 08/26/18 # Bowel Movements 0 Narrative: GENERAL: Alert, oriented x3 well-developed female in NAD. SKIN: Warm and dry. HEAD: Atraumatic. Normocephalic. EYES: Pupils equal and round. No scleral icterus. No injection or drainage. ENT: No nasal bleeding or discharge. Mucous membranes pink and moist. NECK: Trachea midline. No JVD. CARDIOVASCULAR: Regular rate and rhythm. RESPIRATORY: Clear to auscultation. Breath sounds equal bilaterally. Poor air movement, prolonged expiratory phase. GASTROINTESTINAL: Abdomen soft, non-tender, nondistended. Hepatic and splenic margins not palpable. MUSCULOSKELETAL: Extremities without clubbing, cyanosis, or edema. No obvious deformities. NEUROLOGICAL: Awake and alert. No obvious cranial nerve deficits. Motor grossly within normal limits. Five out of 5 muscle strength in the arms and legs. Normal speech. PSYCHIATRIC: Appropriate mood and affect; insight and judgment normal. Results - Labs CBC & Chem 7: 08/26/18 06:15 08/27/18 05:33 Laboratory Results - last 24 hr 08/27/18 08/27/18 08/27/18 09:32 11:43 16:55 Puncture Site Left radial Patient Temperature 98.6 O2 Saturation 89 L* ABG pH 7.30 L ABG pCO2 80 H* ABG pO2 71 ABG HCO3 38 H ABG O2 Content 13.9 ABG Base Excess 11.3 H ABG Methemoglobin 1.2 Antelmo Test Present Hemoglobin 11.1 L Carboxyhemoglobin 1.9 O2 Delivery Device Nasal cannula Liter Flow 3.00 Critical Value Yes POC Glucose 116 H 115 H 08/27/18 08/28/18 21:02 07:34 Puncture Site Patient Temperature O2 Saturation ABG pH ABG pCO2 ABG pO2 ABG HCO3 ABG O2 Content ABG Base Excess ABG Methemoglobin Antelmo Test Hemoglobin Carboxyhemoglobin O2 Delivery Device Liter Flow Critical Value POC Glucose 107 115 H Assessment and Plan - Plan Ms. Mcwilliams is a 47 year old obese AA female with a history of hypertension, DM type 2. She presented to the ED on 08/24/18 due to progressive shortness of breath and swelling over the last 3 weeks. She was unable to lie flat in bed to sleep, and was sleeping sitting up. She had ran out of her home meds approximately 1 week before presentation. On physical examination she has bibasilar crackles. Chest x-ray showed cardiomegaly. BNP was elevated. Troponins negative, CTA negative. She was considered to have acute CHF exacerbation and was admitted. Acute new onset CHF exacerbation Lasix 40mg q8hr Cardiology consulted, recs: IV diuresis, D/C with PO diuresis when improved 2D echo - EF 55-60% - follow up outpatient Uncontrolled hypertension Metoprolol 25mg BID, Amlodipine 10mg daily. Hydralazine 100mg TID. Continue diuresis. COPD Aerosol nebs Obesity hypoventilation syndrome Per pulmonology consult Pulm recs: Aerosol nebs BIPAP at night Sleep study as outpatient ABG on 08/28 revealed worsening hypercapnia after not using BiPap, PCO2 80 -> 88. Trial of BiPap during the day Acute kidney injury likely secondary to Acute CHF Cr stable - 1.20 -> 1.27 -> 1.14 -> 1.29 Potentially new baseline due to multiple medical problems Diabetes mellitus type 2 Continue low-dose sliding scale Obstructive sleep apnea Patient is uncomfortable wearing, BiPap and will not sleep with it on. F/u sleep study with pulmonology Tobacco use, ongoing Counseled, advised to quit. Code Status: Full Lovenox for DVT prophylaxis. Discussed Condition With: patient Discharge Planning: D/C pending disposition
--- NOTE | 2018-08-28 11:10 | P.PN ---
Subjective Interval history: The patient was not using BiPAP overnight. She is more lethargic. She is desaturating in low 80s. Repeat ABG reviewed. Patient was placed on BiPAP. Patient is noncompliant with oxygen and BiPAP. Otherwise no chest pain, no wheezing. No nausea vomiting or diarrhea constipation. Physical Exam Vital signs: Vital Signs 08/27/18 12:00 08/27/18 16:00 08/27/18 20:00 Temperature 98.5 F 97.4 F L 98 F Pulse Rate 88 86 102 H Respiratory Rate 32 H 21 16 Blood Pressure 131/67 180/84 H 157/87 H Pulse Oximetry 92 L 93 L 96 08/27/18 20:24 08/28/18 00:00 08/28/18 04:00 Temperature 98.7 F 98.7 F Pulse Rate 108 H 89 Respiratory Rate 22 16 Blood Pressure 136/56 L 138/71 Pulse Oximetry 95 97 92 L 08/28/18 08:00 08/28/18 11:00 Temperature 98.2 F Pulse Rate 95 H Respiratory Rate 20 Blood Pressure 142/75 H Pulse Oximetry 91 L 93 L Intake & Output 08/27/18 08/28/18 08/28/18 18:59 06:59 18:59 Intake Total 6 / 6 0 / 0 Balance 6 / 6 0 / 0 Weight 117 kg Intake: Oral 0 / 0 Other / 6 Other: # Voids 3 Date of Last Bowel Movement 08/26/18 # Bowel Movements 0 Narrative: GENERAL: Lethargic, however she is arousable. HEAD: Atraumatic. Normocephalic. CARDIOVASCULAR: Regular rate and rhythm. RESPIRATORY: Clear to auscultation. Breath sounds equal bilaterally. Poor air movement, prolonged expiratory phase. GASTROINTESTINAL: Abdomen soft, non-tender, nondistended. MUSCULOSKELETAL: Extremities without clubbing, cyanosis, or edema. No obvious deformities. NEUROLOGICAL: Lethargic. Not following commands at this time. Results - Labs CBC & Chem 7: 08/26/18 06:15 08/27/18 05:33 Laboratory Results - last 24 hr 08/27/18 08/27/18 08/27/18 11:43 16:55 21:02 POC Glucose 116 H 115 H 107 08/28/18 07:34 POC Glucose 115 H Assessment and Plan - Plan Ms. Mcwilliams is a 47 year old obese AA female with a history of hypertension, DM type 2. She presented to the ED on 08/24/18 due to progressive shortness of breath and swelling over the last 3 weeks. She was unable to lie flat in bed to sleep, and was sleeping sitting up. She had ran out of her home meds approximately 1 week before presentation. On physical examination she has bibasilar crackles. Chest x-ray showed cardiomegaly. BNP was elevated. Troponins negative, CTA negative. She was considered to have acute CHF exacerbation and was admitted. Noncompliant with the BiPAP at night. Acute new onset CHF exacerbation Lasix 40mg q8hr Cardiology consulted, recs: IV diuresis, D/C with PO diuresis when improved 2D echo - EF 55-60% - follow up outpatient Uncontrolled hypertension Metoprolol 25mg BID, Amlodipine 10mg daily. Hydralazine 100mg TID. Continue diuresis. COPD Aerosol nebs Obesity hypoventilation syndrome Per pulmonology consult Pulm recs: Aerosol nebs BIPAP at night Sleep study as outpatient ABG on 08/28 revealed worsening hypercapnia after not using BiPap, PCO2 80 -> 88. Trial of BiPap during the day Acute Respiratory failure. Hypercapnia. Requiring O2 and Bipap overnight. Patient is non compliant with bipap at night. ABG reviewed Acute kidney injury likely secondary to Acute CHF Cr stable - 1.20 -> 1.27 -> 1.14 -> 1.29 Potentially new baseline due to multiple medical problems Diabetes mellitus type 2 Continue low-dose sliding scale Obstructive sleep apnea Patient is uncomfortable wearing, BiPap and will not sleep with it on. F/u sleep study with pulmonology Tobacco use, ongoing Counseled, advised to quit. Code Status: Full Lovenox for DVT prophylaxis. Discussed Condition With: patient Discharge Planning: D/C pending improvement. Patient needs O2 and bipap overnight. Pending pulm clearance
[2018-08-28 11:55] LABS: ABG Base Excess 11.3 mmol/L (-2-2); ABG PCO2 88 mmHg (38-42); ABG PO2 71 mmHg (61-120)
--- NOTE | 2018-08-28 16:30 | P.PNPL ---
Subjective Interval history: 47 YO AA female with COPD,CHF,HTN ABG hypercapnoea Did't use BIPAP last night Does't want to use BIPAP Less sob, feels tired Physical Exam Vital signs: Vital Signs 08/27/18 20:00 08/27/18 20:24 08/28/18 00:00 Temperature 98 F 98.7 F Pulse Rate 102 H 108 H Respiratory Rate 16 22 Blood Pressure 157/87 H 136/56 L Pulse Oximetry 96 95 97 08/28/18 04:00 08/28/18 08:00 08/28/18 11:00 Temperature 98.7 F 98.2 F Pulse Rate 89 96 H Respiratory Rate 16 20 Blood Pressure 138/71 142/75 H Pulse Oximetry 92 L 91 L 93 L 08/28/18 12:00 08/28/18 12:10 Temperature 97.8 F Pulse Rate 87 Respiratory Rate 20 Blood Pressure 124/73 Pulse Oximetry 91 L 96 Intake & Output 08/27/18 08/28/18 08/28/18 18:59 06:59 18:59 Intake Total 0 / 0 Balance 0 / 0 Weight 117 kg Intake: Oral 0 / 0 Other Other: # Voids 3 Date of Last Bowel Movement 08/26/18 08/26/18 # Bowel Movements 0 GENERAL: Obese AA female, NAD SKIN: Warm and dry. HEAD: Normocephalic. EYES: No scleral icterus. No injection or drainage. NECK: Supple, trachea midline. No JVD or lymphadenopathy. CARDIOVASCULAR: Regular rate and rhythm without murmurs, gallops, or rubs. RESPIRATORY: Breath sounds equal bilaterally. No accessory muscle use. GASTROINTESTINAL: Abdomen soft, non-tender, nondistended. MUSCULOSKELETAL: No cyanosis, or edema. BACK: Nontender without obvious deformity. No CVA tenderness. GENERAL: SKIN: Warm and dry. HEAD: Normocephalic. EYES: No scleral icterus. No injection or drainage. NECK: Supple, trachea midline. No JVD or lymphadenopathy. CARDIOVASCULAR: Regular rate and rhythm without murmurs, gallops, or rubs. RESPIRATORY: Breath sounds equal bilaterally. No accessory muscle use. GASTROINTESTINAL: Abdomen soft, non-tender, nondistended. MUSCULOSKELETAL: No cyanosis, or edema. BACK: Nontender without obvious deformity. No CVA tenderness. Assessment and Plan - Plan IMPRESSION: 1. Symptoms suggestive of sleep apnea. 2. Morbid obesity. 3. Obesity hypoventilation syndrome. 4. Hypertension. 5. Diabetes mellitus. PLAN: Aerosol nebs BIPAP at night Diurease monitor lytes Will need sleep study as out pt PFT Advised her to use BIPAP
[2018-08-28] MEDS: Enoxaparin Inj 40 MG/0.4 ML Syringe SQ SCH (17:48)
[2018-08-29] MEDS: Ferrous Sulfate 325 MG Tablet PO SCH ×2 (08:18→21:10)
[2018-08-29] MEDS: ISOSORBIDE DINITRATE 40 MG PO SCH ×2 (08:18→13:01)
[2018-08-29] MEDS: amLODIPine 10 MG Tablet PO SCH (08:18)
[2018-08-29] MEDS: Metoprolol Tartrate 25 MG Tablet PO SCH ×2 (08:18→21:10)
[2018-08-29] MEDS: Insulin NovoLOG Aspart Correctional Sugar Inj SQ SCH ×4 (08:23→21:26)
--- NOTE | 2018-08-29 11:30 | P.PNPL ---
Subjective Interval history: 47 YO AA female with COPD,CHF,HTN ABG hypercapnoea Less sob, feels tired Mild sob PFT showes restrictive lung disease Physical Exam Vital signs: Vital Signs 08/28/18 12:00 08/28/18 12:10 08/28/18 16:00 Temperature 97.8 F 97.7 F Pulse Rate 87 101 H Respiratory Rate 20 20 Blood Pressure 124/73 115/67 Pulse Oximetry 91 L 96 94 L 08/28/18 16:30 08/28/18 20:00 08/28/18 20:13 Temperature 97.2 F L Pulse Rate 97 H Respiratory Rate 18 Blood Pressure 116/53 L Pulse Oximetry 93 L 93 L 95 08/28/18 21:48 08/29/18 00:00 08/29/18 00:30 Temperature 98.4 F Pulse Rate 82 Respiratory Rate 18 Blood Pressure 119/63 Pulse Oximetry 96 99 94 L 08/29/18 02:59 08/29/18 04:00 08/29/18 08:00 Temperature 98.2 F 98.3 F Pulse Rate 85 90 Respiratory Rate 18 16 Blood Pressure 107/64 122/76 Pulse Oximetry 96 98 95 Intake & Output 08/28/18 08/29/18 08/29/18 18:59 06:59 18:59 Intake Total 600 / 600 600 / 600 Output Total 550 / 550 Balance 600 / 600 50 / 50 Weight 118.3 kg Intake: Oral 600 / 600 600 / 600 Output: Urine 550 / 550 Other: # Voids 3 Date of Last Bowel Movement 08/26/18 # Bowel Movements 0 0 GENERAL: SKIN: Warm and dry. HEAD: Normocephalic. EYES: No scleral icterus. No injection or drainage. NECK: Supple, trachea midline. No JVD or lymphadenopathy. CARDIOVASCULAR: Regular rate and rhythm without murmurs, gallops, or rubs. RESPIRATORY: Breath sounds equal bilaterally. No accessory muscle use. GASTROINTESTINAL: Abdomen soft, non-tender, nondistended. MUSCULOSKELETAL: No cyanosis, or edema. BACK: Nontender without obvious deformity. No CVA tenderness. Assessment and Plan - Plan IMPRESSION: 1. Symptoms suggestive of sleep apnea. 2. Morbid obesity. 3. Obesity hypoventilation syndrome. 4. Hypertension. 5. Diabetes mellitus. PLAN: Aerosol nebs BIPAP at night Diurease monitor ana lilia Will need sleep study as out pt Advised her to use BIPAP Home 02 walk test
--- NOTE | 2018-08-29 11:37 | P.PN ---
Subjective Interval history: She is more awake and alert today. She was using BiPAP overnight. No fever or chills. She has not coughing. Discussed with the patient at length being compliant with BiPAP. She expressed understanding. Physical Exam Vital signs: Vital Signs 08/28/18 12:00 08/28/18 12:10 08/28/18 16:00 Temperature 97.8 F 97.7 F Pulse Rate 87 101 H Respiratory Rate 20 20 Blood Pressure 124/73 115/67 Pulse Oximetry 91 L 96 94 L 08/28/18 16:30 08/28/18 20:00 08/28/18 20:13 Temperature 97.2 F L Pulse Rate 97 H Respiratory Rate 18 Blood Pressure 116/53 L Pulse Oximetry 93 L 93 L 95 08/28/18 21:48 08/29/18 00:00 08/29/18 00:30 Temperature 98.4 F Pulse Rate 82 Respiratory Rate 18 Blood Pressure 119/63 Pulse Oximetry 96 99 94 L 08/29/18 02:59 08/29/18 04:00 08/29/18 08:00 Temperature 98.2 F 98.3 F Pulse Rate 85 90 Respiratory Rate 18 16 Blood Pressure 107/64 122/76 Pulse Oximetry 96 98 95 Intake & Output 08/28/18 08/29/18 08/29/18 18:59 06:59 18:59 Intake Total 600 / 600 600 / 600 Output Total 550 / 550 Balance 600 / 600 50 / 50 Weight 118.3 kg Intake: Oral 600 / 600 600 / 600 Output: Urine 550 / 550 Other: # Voids 3 Date of Last Bowel Movement 08/26/18 # Bowel Movements 0 0 Narrative: GENERAL: More awake and alert. 47-year-old female obese in the chair setting where on nasal cannula HEAD: Atraumatic. Normocephalic. CARDIOVASCULAR: Regular rate and rhythm. RESPIRATORY: Clear to auscultation. Breath sounds equal bilaterally. Poor air movement, prolonged expiratory phase. GASTROINTESTINAL: Abdomen soft, non-tender, nondistended. MUSCULOSKELETAL: Extremities without clubbing, cyanosis, or edema. No obvious deformities. NEUROLOGICAL: More awake, oriented and alert. Cranial nerves grossly intact. Follows commands. Moves arms and legs. Results - Labs CBC & Chem 7: 08/26/18 06:15 08/27/18 05:33 Laboratory Results - last 24 hr 08/28/18 08/28/18 11:44 19:57 Puncture Site Left radial Patient Temperature 98.6 O2 Saturation 88 L* ABG pH 7.26 L* ABG pCO2 88 H* ABG pO2 71 ABG HCO3 38 H ABG O2 Content 15.1 ABG Base Excess 11.3 H ABG Methemoglobin 1.0 Antelmo Test Present Hemoglobin 12.1 Carboxyhemoglobin 1.8 O2 Delivery Device Nasal cannula Liter Flow 3.00 Critical Value Yes POC Glucose 171 H Assessment and Plan - Plan Ms. Mcwilliams is a 47 year old obese AA female with a history of hypertension, DM type 2. She presented to the ED on 08/24/18 due to progressive shortness of breath and swelling over the last 3 weeks. She was unable to lie flat in bed to sleep, and was sleeping sitting up. She had ran out of her home meds approximately 1 week before presentation. On physical examination she has bibasilar crackles. Chest x-ray showed cardiomegaly. BNP was elevated. Troponins negative, CTA negative. She was considered to have acute CHF exacerbation and was admitted. Noncompliant with the BiPAP at night. Acute new onset CHF exacerbation Lasix 40mg q8hr Cardiology consulted, recs: IV diuresis, D/C with PO diuresis when improved 2D echo - EF 55-60% - follow up outpatient Uncontrolled hypertension Metoprolol 25mg BID, Amlodipine 10mg daily. Hydralazine 100mg TID. Continue diuresis. COPD Aerosol nebs Obesity hypoventilation syndrome Per pulmonology consult Pulm recs: Aerosol nebs BIPAP at night Sleep study as outpatient ABG on 08/28 revealed worsening hypercapnia after not using BiPap, PCO2 80 -> 88. Trial of BiPap during the day Acute Respiratory failure. Hypercapnia. Requiring O2 and Bipap overnight. Patient is non compliant with bipap at night. ABG reviewed, she was placed on ZBipap during the day on 08/28/18. Discussed with the patient at length Acute kidney injury likely secondary to Acute CHF Cr stable - 1.20 -> 1.27 -> 1.14 -> 1.29 Potentially new baseline due to multiple medical problems Diabetes mellitus type 2 Continue low-dose sliding scale Obstructive sleep apnea Patient is uncomfortable wearing, BiPap and will not sleep with it on. F/u sleep study with pulmonology Tobacco use, ongoing Counseled, advised to quit. Code Status: Full Lovenox for DVT prophylaxis. Discussed Condition With: patient Discharge Planning: D/C pending improvement. Patient needs O2 and bipap overnight. Pending pulm clearance
[2018-08-29 15:05] VITALS: RESP 18
[2018-08-29] MEDS: Enoxaparin Inj 40 MG/0.4 ML Syringe SQ SCH (17:00)
[2018-08-29] MEDS: Acetaminophen 325 MG Tablet PO PRN (23:46)
[2018-08-30] MEDS: Insulin NovoLOG Aspart Correctional Sugar Inj SQ SCH ×2 (08:29→12:57)
[2018-08-30] MEDS: amLODIPine 10 MG Tablet PO SCH (08:30)
[2018-08-30] MEDS: Ferrous Sulfate 325 MG Tablet PO SCH (08:31)
[2018-08-30] MEDS: Metoprolol Tartrate 25 MG Tablet PO SCH (08:31)
[2018-08-30] MEDS: ISOSORBIDE DINITRATE 40 MG PO SCH ×2 (08:34→13:01)
--- NOTE | 2018-08-30 10:05 | P.PN ---
Subjective Interval history: The patient says she feels much better today is more awake and alert says that she was using oxygen at home today. Family also at bedside. No cough no fever or chills. Physical Exam Vital signs: Vital Signs 08/29/18 11:31 08/29/18 12:00 08/29/18 16:00 Temperature 97.5 F L 98.1 F Pulse Rate 85 91 H Respiratory Rate 18 18 Blood Pressure 114/57 L 107/51 L Pulse Oximetry 94 L 93 L Pulse Oximetry [Resting on Room Air] 86 L 08/29/18 16:56 08/29/18 20:00 08/30/18 00:00 Temperature 98.1 F 98.1 F Pulse Rate 96 H 96 H Respiratory Rate 18 18 Blood Pressure 134/75 142/80 H Pulse Oximetry 95 93 L 86 L Pulse Oximetry [Resting on Room Air] 08/30/18 04:00 08/30/18 08:00 Temperature 98.0 F 97.9 F Pulse Rate 84 94 H Respiratory Rate 18 18 Blood Pressure 140/78 134/64 Pulse Oximetry 91 L 93 L Pulse Oximetry [Resting on Room Air] Intake & Output 08/29/18 08/30/18 08/30/18 18:59 06:59 18:59 Weight 120.1 kg Other: # Voids 3 Date of Last Bowel Movement 08/26/18 Narrative: GENERAL: 47-year-old female obese, setting well on nasal cannula, appears in not acute distress. HEAD: Atraumatic. Normocephalic. CARDIOVASCULAR: Regular rate and rhythm. RESPIRATORY: Clear to auscultation. Breath sounds equal bilaterally. Poor air movement, prolonged expiratory phase. GASTROINTESTINAL: Abdomen soft, non-tender, nondistended. MUSCULOSKELETAL: Extremities without clubbing, cyanosis, or edema. No obvious deformities. NEUROLOGICAL: Awake alert and oriented by 4. Cranial nerves grossly intact. Motor strength grossly normal. Results - Labs CBC & Chem 7: 08/26/18 06:15 08/27/18 05:33 Laboratory Results - last 24 hr 08/29/18 08/29/18 08/30/18 17:51 19:33 07:55 POC Glucose 115 H 137 H 119 H Assessment and Plan - Plan Ms. Mcwilliams is a 47 year old obese AA female with a history of hypertension, DM type 2. She presented to the ED on 08/24/18 due to progressive shortness of breath and swelling over the last 3 weeks. She was unable to lie flat in bed to sleep, and was sleeping sitting up. She had ran out of her home meds approximately 1 week before presentation. On physical examination she has bibasilar crackles. Chest x-ray showed cardiomegaly. BNP was elevated. Troponins negative, CTA negative. She was considered to have acute CHF exacerbation and was admitted. Noncompliant with the BiPAP at night. Acute new onset CHF exacerbation Lasix 40mg q8hr Cardiology consulted, recs: IV diuresis, D/C with PO diuresis when improved 2D echo - EF 55-60% - follow up outpatient Uncontrolled hypertension Metoprolol 25mg BID, Amlodipine 10mg daily. Hydralazine 100mg TID. Continue diuresis. COPD Aerosol nebs Obesity hypoventilation syndrome Per pulmonology consult Pulm recs: Aerosol nebs BIPAP at night Sleep study as outpatient ABG on 08/28 revealed worsening hypercapnia after not using BiPap, PCO2 80 -> 88. Trial of BiPap during the day Acute Respiratory failure. Hypercapnia. Requiring O2 and Bipap overnight. Patient is non compliant with bipap at night. ABG reviewed, she was placed on ZBipap during the day on 08/28/18. Discussed with the patient at length Acute kidney injury likely secondary to Acute CHF Cr stable - 1.20 -> 1.27 -> 1.14 -> 1.29 Potentially new baseline due to multiple medical problems Diabetes mellitus type 2 Continue low-dose sliding scale Obstructive sleep apnea Patient is uncomfortable wearing, BiPap and will not sleep with it on. F/u sleep study with pulmonology Tobacco use, ongoing Counseled, advised to quit. Code Status: Full Lovenox for DVT prophylaxis. Discussed Condition With: patient Discharge Planning: Patient needs O2 at home.
--- NOTE | 2018-08-30 13:19 | P.DS ---
Date of admission: 08/24/18 16:46 Primary care physician: No Primary Care Physician Brief History from admission: This patient is a 47-year-old obese -[place] female with a diagnosis of hypertension, and diabetes mellitus type 2. The patient presents to our emergency department with complaints of shortness of breath and lower extremity swelling that has been progressively been getting worse over the past 3 weeks. She states that she sleeps in her bathroom because she sits on the toilet and is more comfortable in the bathroom in a sitting position then sleeping laying flat in her bed. She has been doing this for months. Today she was feeling short of breath and her legs were feeling heavy so she came into the emergency department to be evaluated. She denies having any significant chest pain however did complain of bilateral medial knee pain and tightness in her skin of her lower extremities. She denies any nausea or vomiting, no fevers, no diarrhea, no bleeding, no constipation. The patient ran out of her blood pressure medication and metformin a week ago. Past medical history hypertension, diabetes mellitus type 2 Family history significant for diabetes mellitus, hypertension, father of a heart attack she is not sure what age he was when he . Social history the patient smokes approximately 5 cigarettes/day for 15 years., She drinks socially. Denies any history of drug use Surgical history the patient has had C-sections in the past. Medications amlodipine and metformin the patient does not remember the doses. Allergies penicillin which causes hives Lisinopril which causes angioedema DS: Diagnosis - Discharge Diagnosis (1) Acute exacerbation of CHF (congestive heart failure) Status: Acute (2) Chest pain Status: Acute DS: Medications - Discharge Medications Prescriptions: albuterol sulfate 1 puff INHALATION Q4-6H PRN 30 Days g PRN Reason: Shortness Of Breath amlodipine [Norvasc] 10 mg PO DAILY #30 tab aspirin 81 mg PO DAILY #30 tab budesonide [Pulmicort Flexhaler] 1 inh INHALATION Q12H 30 Days each ferrous sulfate [FeroSul] 325 mg PO BID #30 tab furosemide [Lasix] 40 mg PO DAILY #30 tab hydralazine 100 mg PO TID #90 tab ipratropium bromide 1 puff INHALATION Q6H 30 Days g isosorbide dinitrate 40 mg PO BID@0800,1400 #30 tab metoprolol tartrate 25 mg PO BID #60 tab DS: Summary Hospital Course: Ms. Mcwilliams is a 47 year old obese AA female with a history of hypertension, DM type 2. She presented to the ED on 08/24/18 due to progressive shortness of breath and swelling over the last 3 weeks. She was unable to lie flat in bed to sleep, and was sleeping sitting up. She had ran out of her home meds approximately 1 week before presentation. On physical examination she has bibasilar crackles. Chest x-ray showed cardiomegaly. BNP was elevated. Troponins negative, CTA negative. She was considered to have acute CHF exacerbation and was admitted. Noncompliant with the BiPAP at night. Acute new onset CHF exacerbation Lasix 40mg q8hr Cardiology consulted, recs: IV diuresis, D/C with PO diuresis when improved 2D echo - EF 55-60% - follow up outpatient Uncontrolled hypertension Metoprolol 25mg BID, Amlodipine 10mg daily. Hydralazine 100mg TID. Continue diuresis. COPD Aerosol nebs Obesity hypoventilation syndrome Per pulmonology consult Pulm recs: Aerosol nebs BIPAP at night Sleep study as outpatient ABG on 08/28 revealed worsening hypercapnia after not using BiPap, PCO2 80 -> 88. Trial of BiPap during the day Acute Respiratory failure. Hypercapnia. Requiring O2 and Bipap overnight. Patient is non compliant with bipap at night. ABG reviewed, she was placed on ZBipap during the day on 08/28/18. Discussed with the patient at length Acute kidney injury likely secondary to Acute CHF Cr stable - 1.20 -> 1.27 -> 1.14 -> 1.29 Potentially new baseline due to multiple medical problems Diabetes mellitus type 2 Continue low-dose sliding scale Obstructive sleep apnea Patient is uncomfortable wearing, BiPap and will not sleep with it on. F/u sleep study with pulmonology Tobacco use, ongoing Counseled, advised to quit. The patient is improved she is saturating well on 2 L by nasal cannula. Cleared by pulmonology for discharge patient to follow-up as outpatient with pulmonology at to have sleep study and possible requires CPAP at night at night. Patient discharged home in stable condition to follow-up with PCP and consultants as outpatient. - Time Spent with Patient Total time spent providing and/or coordinating discharge services: Greater than 30 minutes - Quality: VTE Deep Vein Thrombosis/Pulmonary Embolism Present on Admission: No Exam Vital signs: Vital Signs 08/29/18 16:00 08/29/18 16:56 08/29/18 20:00 Temperature 98.1 F 98.1 F Pulse Rate 91 H 96 H Respiratory Rate 18 18 Blood Pressure 107/51 L 134/75 Pulse Oximetry 93 L 95 93 L Pulse Oximetry [Resting on Room Air] Pulse Oximetry [Resting with Oxygen] 08/30/18 00:00 08/30/18 04:00 08/30/18 08:00 Temperature 98.1 F 98.0 F 97.9 F Pulse Rate 96 H 84 91 H Respiratory Rate 18 18 18 Blood Pressure 142/80 H 140/78 134/64 Pulse Oximetry 86 L 91 L 93 L Pulse Oximetry [Resting on Room Air] Pulse Oximetry [Resting with Oxygen] 08/30/18 10:54 08/30/18 12:41 Temperature Pulse Rate Respiratory Rate Blood Pressure Pulse Oximetry 96 Pulse Oximetry [Resting on Room Air] 86 L Pulse Oximetry [Resting with Oxygen] 95 Intake & Output 08/29/18 08/30/18 08/30/18 18:59 06:59 18:59 Weight 120.1 kg Other: # Voids 3 Date of Last Bowel Movement 08/26/18 Narrative: GENERAL: 47-year-old female obese, setting well on nasal cannula, appears in not acute distress. HEAD: Atraumatic. Normocephalic. CARDIOVASCULAR: Regular rate and rhythm. RESPIRATORY: Clear to auscultation. Breath sounds equal bilaterally. Poor air movement, prolonged expiratory phase. GASTROINTESTINAL: Abdomen soft, non-tender, nondistended. MUSCULOSKELETAL: Extremities without clubbing, cyanosis, or edema. No obvious deformities. NEUROLOGICAL: Awake alert and oriented by 4. Cranial nerves grossly intact. Motor strength grossly normal. Results Procedures completed during hospitalization: none Labs on day of discharge: Labs from last 24 hours 08/30/18 08/30/18 08/29/18 12:43 07:55 19:33 POC Glucose 121 H 119 H 137 H 08/29/18 17:51 POC Glucose 115 H - Impressions ITS Impressions Chest X-Ray 08/24/18 12:34 CONCLUSION: Cardiomegaly. Venous Doppler Study 08/24/18 12:44 CONCLUSION: 1. No evidence of DVT. Chest CTA 08/24/18 12:45 CONCLUSION: 1. No evidence of pulmonary embolism. 2. A few mild scattered interstitial infiltrates are noted bilaterally. 3. Compensated cardiomegaly. Discharge Plan - Discharge Disposition Patient Disposition: 01 Discharge Home - Discharge Condition Condition: Stable - Discharge Order Discharge Orders: Discharge Order (Routine); Ordered 08/30/18 Ordered By: Mere Earl - Discharge Details Anticipated Discharge Date: 08/30/18 - Physicians Team Primary Care Provider: Primary Care Mackenzie Malone Attending Provider: Mere Earl Other Providers: Kwadwo Santos MD ; Cleo Rodas MD
[2018-08-30 14:07] VITALS: BP 120/60; TEMP 97.8; O2SAT 93
[2018-08-30 14:33] VITALS: PULSE 82
== END 2018-08-30 16:10 | disposition home or self-care (01) ==
LOC: NEPE 12:05 → NEDA 12:05 → N04 20:31 → UNDODISIN 08-30 15:55
PROVIDERS: ADMIT Hospitalist; ATTEND Hospitalist